=== PATIENT | female | born 1975 ===

== ENCOUNTER 2020-04-28 10:22 | Outpatient (REF) | payer OTHER, SELFPAY ==
--- NOTE | 2020-04-28 | US_ITS ---
EXAMINATION: RIGHT and LEFT LOWER EXTREMITY VENOUS ULTRASOUND (Reflux Exam) CLINICAL INDICATION: leg pain and varicose veins. COMPARISON: Bilateral lower extremity venous ultrasound January 2020 TECHNIQUE: Color flow triplex imaging and compression Doppler was performed to evaluate both the deep and the superficial systems bilaterally. To evaluate the superficial system, the examination was performed in the upright position. Color-flow Doppler ultrasound and compression ultrasound were utilized. In addition, maneuvers were utilized to demonstrate reflux. FINDINGS: 1. DEEP VENOUS ULTRASOUND OF THE RIGHT LOWER EXTREMITY: Respiratory variation, normal compression and augmented flow are noted in the right common femoral vein as well as the right popliteal vein and there is no evidence of deep venous thrombosis at these locations. There is no evidence of reflux in the deep system in either the common femoral vein or the popliteal vein. There is no evidence of a Cotter's cyst. 2. SUPERFICIAL ULTRASOUND WITH DOPPLER OF RIGHT LOWER EXTREMITY: The right great saphenous vein at the saphenofemoral junction measures 6 mm, at the mid thigh 5 mm, pqyok-qoh-dgyd 6 mm, jcgyl-giw-lxrc 5 mm, at mid calf 4 mm and at the ankle measures 4 mm. There is diffuse right greater saphenous vein reflux measuring maximum 3.6 seconds below the knee. The right small saphenous vein measures 1 mm and shows no reflux. There is a paperhanger in the mid thigh that measures 3 mm and demonstrates 3.5 second reflux. There is a varicosity in the proximal calf that measures 3 mm and demonstrates 3.4 seconds reflux. There is a right inguinal lymphadenopathy. 3. DEEP VENOUS ULTRASOUND OF THE LEFT LOWER EXTREMITY: Respiratory variation, normal compression and augmented flow are noted in the left common femoral vein as well as the left popliteal vein and there is no evidence of deep venous thrombosis at these locations. There is no evidence of reflux in the deep system in either the common femoral vein or the popliteal vein. . There is no evidence of a Cotter's cyst. 4. SUPERFICIAL ULTRASOUND WITH DOPPLER OF LEFT LOWER EXTREMITY: Left great saphenous vein at the saphenofemoral junction measures 7 mm, at the mid thigh 3 mm, jjunm-hrz-xlor 3 mm, ersrg-yde-rhyi 3 mm, at mid calf to mm and at the ankle measures 3 mm. 'T there is reflux in the left greater saphenous vein below the knee measuring 0.3 there is reflux in the left greater saphenous vein measuring 1.9 seconds of below the knee. There is a medial accessory left greater saphenous vein that measures 2 to 3 mm and does not demonstrate reflux. The left small saphenous vein measures 1 mm and shows no reflux. There are small varicosities that measure less than 3 mm in the left lower extremity and do not demonstrate reflux. There is left inguinal lymphadenopathy. IMPRESSION: 1. No evidence of reflux or thrombus in the common femoral veins or popliteal veins bilaterally. 2. Bilateral greater saphenous vein reflux, right greater than left.
== END 2020-04-28 10:23 | disposition home or self-care (01) ==
LOC: HO.US 10:22
PROVIDERS: PCP Internal Medicine; Visit Provider Surgery Vascular Surgery
DX: I83.11 Varicose veins of right lower extremity with inflammation (principal)
CPT/HCPCS: 93970

== ENCOUNTER → 2020-05-03 13:17 | Outpatient (REF) | payer OTHER, SELFPAY ==
--- NOTE | 2020-05-03 13:00 | ECG_ITS ---
Hook-up date: 2020-05-03 13:26:00 Duration: 23:07:00 Test Indications: PALPITATIONS, PVC'S, WPW Medications: 90635 QRS complexes 1 Ventricular ectopics which represent <1 % of total QRS comp. 5 Supraventricular ectopics which represent <1 % of total QRS comp. * Paced QRS complexs which represent % of total QRS comp. VENTRICULAR ECTOPY 1 Isolated 0 Bigeminal Cycles 0 Couplets 0 Runs 0 Beats in Runs * Beats LONGEST at * BPM at :: -- * Beats FASTEST at * BPM at :: -- SUPRAVENTRICULAR ECTOPY 1 Isolated 0 Couplets 1 Runs 4 Beats in Runs 4 Beats LONGEST at 180 BPM at 13:30:01 2020-05-03 4 Beats FASTEST at 180 BPM at 13:30:01 2020-05-03 HEART RATES 56 MIN at 06:17:09 2020-05-04 84 AVG 127 MAX at 13:26:58 2020-05-03 LONGEST RR 1.1600 secs at 05:12:51 2020-05-04 S-T LEVELS Channel 1 - 128 mm at 13:26:00 2020-05-03 - 128 mm at 13:26:00 2020-05-03 Channel 2 - 128 mm at 13:26:00 2020-05-03 - 128 mm at 13:26:00 2020-05-03 Channel 3 - 128 mm at 03:24:51 -- - 128 mm at 03:24:51 Underlying rhythm is sinus; Average ventricular rate 84/min; range 56-127/min; Very rare supraventricular ectopy; No sustained arrhythmias; Patient did not return diary Referred By: Jn Rodrigze Overread By: GIRISH WILLOUGHBY
== END ==
LOC: HO.CARD 13:17
PROVIDERS: Visit Provider Internal Medicine Cardiovascular Disease
DX: R00.2 Palpitations (principal); I49.3 Ventricular premature depolarization; I45.6 Pre-excitation syndrome
CPT/HCPCS: 93225; 93226

== ENCOUNTER → 2020-05-05 10:09 | Outpatient (BNVA) | payer OTHER, SELFPAY | PROVIDERS: PCP Internal Medicine; Visit Provider Surgery Vascular Surgery | DX: I83.11 Varicose veins of right lower extremity with inflammation (principal) | CPT/HCPCS: 99213 ==

== ENCOUNTER → 2020-06-03 07:31 | Outpatient (BNVA) | payer OTHER, SELFPAY | PROVIDERS: PCP Internal Medicine; Referring Provider Internal Medicine; Visit Provider Surgery Vascular Surgery | DX: I83.11 Varicose veins of right lower extremity with inflammation (principal) | CPT/HCPCS: 36482 ==

== ENCOUNTER 2020-06-06 15:28 | Outpatient (REF) | payer OTHER, SELFPAY ==
--- NOTE | 2020-06-06 | US_ITS ---
EXAMINATION: US VENOUS ULTRASOUND WITH DOPPLER LOWER EXTREMITY, RIGHT CLINICAL INFORMATION: Right leg pain and swelling post venoseal procedure COMPARISON: Previous exam April 2020 TECHNIQUE: Ultrasound of the deep veins is performed from the hip to the calf with compression sonography and color and pulse Doppler assessment. Spectral analysis with color-flow imaging is performed. FINDINGS: There is normal venous compression and respiratory variation and augmented flow. The visualized common femoral vein, superficial femoral vein, profunda femoral vein, popliteal vein, and the trifurcation region shows no evidence of deep venous thrombosis. There is no significant popliteal fossa cyst. There is echogenic material seen in the right greater saphenous vein 1.4 cm from the saphenofemoral junction post venoseal procedure. No flow is seen in the right greater saphenous vein. There is no Cotter's cyst. There are small right groin lymph nodes. US/US venous duplex LE RT IMPRESSION: No DVT demonstrated in the right lower extremity.
== END 2020-06-06 15:29 | disposition home or self-care (01) ==
LOC: HO.HMGCX 15:28
PROVIDERS: PCP Internal Medicine; Visit Provider Surgery Vascular Surgery
DX: M79.604 Pain in right leg (principal)
CPT/HCPCS: 93971

== ENCOUNTER → 2020-06-21 15:02 | Outpatient (BNVA) | payer OTHER, SELFPAY | PROVIDERS: PCP Internal Medicine; Referring Provider Internal Medicine; Visit Provider Surgery Vascular Surgery | DX: Z48.812 Encounter for surgical aftercare following surgery on the circulatory system (principal) | CPT/HCPCS: 99212 ==

== ENCOUNTER 2020-08-31 08:26 | Outpatient (REF) | payer OTHER, SELFPAY ==
--- NOTE | 2020-08-31 08:34 | US_ITS ---
EXAMINATION: US COMPLETE ABDOMEN WITH LIVER ELASTOGRAPHY CLINICAL INFORMATION: Abnormal liver function tests COMPARISON: None. TECHNIQUE: Real-time imaging of the abdominal viscera. Noninvasive ultrasound liver fibrosis assessment is performed using Brigida ElastPQ point quantification shear wave elastography (pSWE) with a 5 MHz transducer. Multiple elastography samples are obtained. FINDINGS: PANCREAS: Normal. ABDOMINAL AORTA: The proximal, middle, and distal aortic segments are normal in caliber. INFERIOR VENA CAVA: Visualized portions are normal. LIVER: Liver echotexture is increased probably representing fatty infiltration. There is a hypoechoic area adjacent to the gallbladder, characteristic location of focal fatty sparing. The liver is normal in contour.. No focal lesion or intrahepatic biliary duct dilatation. The liver is enlarged. The right lobe measures 22 cm in length. The left lobe measures 13 cm in length. Main portal vein is patent with appropriate hepatopedal flow Shear wave elastography provides a median stiffness of 1.5 m/s (reference: normal median stiffness is 0.81 - 1.22 m/s). The IQR/median stiffness to assess sampling precision is 0.4 (reference: optimal IQR/median stiffness is under 0.3). GALLBLADDER: Normal. The gallbladder is physiologically distended without evidence of stones, sludge, polyps, wall thickening or pericholecystic fluid. COMMON BILE DUCT: Normal in caliber measuring 0.2 cm in diameter. RIGHT KIDNEY: Normal. No hydronephrosis. No renal calculi or focal parenchymal lesions. The kidney measures 10 cm in maximum dimension. LEFT KIDNEY: Normal. No hydronephrosis. No renal calculi or focal parenchymal lesions. The kidney measures 10 cm in maximum dimension. SPLEEN: Normal. The spleen measures 12 cm in maximum dimension. FREE FLUID: None. US/US abdomen witt w elastography IMPRESSION: 1. Impression: Enlarged echogenic liver probably representing fatty infiltration. 2. Elastography: Metavir score F2 to F3 suggestive of [id number]-ut-hmqhsudd increased risk of developing liver fibrosis.
--- NOTE | 2020-08-31 08:34 | XR_ITS ---
EXAMINATION: XR KNEE, RIGHT CLINICAL INFORMATION: Pain COMPARISON: None TECHNIQUE: Two views of the right knee. FINDINGS: There is loss of medial and patellofemoral compartment joint space. There is anterior superior patellar enthesophyte. No abnormal joint effusion seen. There are no loose bodies or bony erosive changes. No abnormal joint effusion. XR/XR knee RT 2V IMPRESSION: There is anterior superior patellar enthesophyte. No visible acute fracture, dislocation or joint effusion seen.
[2020-08-31 10:59] LABS: Alanine Aminotransferase 39 U/L (0-31); Albumin Level 3.8 g/dL (3.5-5.0); Alkaline Phosphatase 161 U/L (39-117); Anion Gap 11 (12-20); Aspartate Amino Transferase 29 U/L (5-31); Bilirubin Total 0.9 mg/dL (0.0-1.0); Blood Urea Nitrogen 11 mg/dL (9-16); Calcium 8.6 mg/dL (8.4-10.2); Carbon Dioxide 28 mmol/L (22-29); Chloride 106 mmol/L (96-108); Cholesterol 182 mg/dL; Estimated Glomerular Filt Rate > 60; Glucose Fasting 123 mg/dL (60-99); HDL Cholesterol 37 mg/dL; LDL Cholesterol Calculated 101 mg/dl; Potassium 3.9 mmol/L (3.3-5.1); Sodium 141 mmol/L (135-145); Total Protein 6.6 g/dL (6.5-8.0); Triglycerides 223 mg/dL
[2020-08-31 11:11] LABS: HBS Num1 > 1000.00 mIU/mL (0-7.99); HBc Num1 0.05 S/CO (0.00-0.79); HBsAGNum1 0.17 S/CO (0.00-0.99); Hepatitis B Core Antibody Nonreactive (Nonreactive); Hepatitis B Surface Antigen Negative (Negative); ~HepC Num1 0.11 S/CO (0.00-0.79); ~Hepatitis B Surface Antibody REACTIVE (Nonreactive); ~Hepatitis C Antibody Nonreactive (Nonreactive)
[2020-08-31 11:27] LABS: Hepatitis A Antibody IgM 0.19 Index (0-0.79); ~Hepatitis A Antibody IgM Nonreactive (Nonreactive)
== END 2020-08-31 08:27 | disposition home or self-care (01) ==
LOC: HO.US 08:26
PROVIDERS: PCP Internal Medicine; Visit Provider Internal Medicine
DX: R74.01 Elevation of levels of liver transaminase levels (principal); E78.5 Hyperlipidemia, unspecified; R73.02 Impaired glucose tolerance (oral); M25.561 Pain in right knee
CPT/HCPCS: 36415; 73560; 76705; 76981; 80053; 80061; 86704; 86706; 86709; 86803; 87340

== ENCOUNTER 2021-01-03 11:28 | Outpatient (REF) | payer OTHER, SELFPAY ==
[2021-01-03 12:35] LABS: MANUAL DIFF FLAG NO
[2021-01-03 12:42] LABS: Basophils Percent Auto 0.5 % (0-2); Eosinophils Absolute Auto 0.1 X10*3/uL (0.0-0.4); Eosinophils Percent Auto 1.7 % (0-4); Hematocrit 42.2 % (37-47); Hemoglobin 14.3 g/dl (12.0-16.0); Imm Gran Abs Auto 0.03 X10*3/uL (0.00-0.03); Imm Gran Pct Auto 0.4 % (0.0-0.4); Lymphocytes Absolute Auto 2.6 X10*3/uL (1.2-4.9); Lymphocytes Percent Auto 32.3 % (20-40); Mean Corpuscular HGB Conc 33.9 g/dl (31.0-35.0); Mean Corpuscular Volume 82.7 fL (80-98); Mean Platelet Volume 9.6 fL (9.4-12.3); Monocytes Absolute Auto 0.4 X10*3/uL (0.1-1.2); Monocytes Percent Auto 4.8 % (2-11); Neutrophils Absolute Auto 4.9 X10*3/uL (2.0-8.3); Neutrophils Percent Auto 60.3 % (45-73); Platelet Count 221 X10*3/uL (160-400); Red Cell Distribution Width 12.6 % (11.0-16.0); White Blood Count 8.2 X10*3/uL (4.8-10.8)
[2021-01-03 12:53] LABS: Prothrombin Time 11.7 SEC (10.8-13.0)
[2021-01-03 13:12] LABS: Alanine Aminotransferase 39 U/L (0-31); Alkaline Phosphatase 178 U/L (39-117); Anion Gap 10 (12-20); Aspartate Amino Transferase 26 U/L (5-31); Bilirubin Total 0.9 mg/dL (0.0-1.0); Blood Urea Nitrogen 13 mg/dL (9-16); Calcium 9.6 mg/dL (8.4-10.2); Carbon Dioxide 29 mmol/L (22-29); Chloride 106 mmol/L (96-108); Estimated Glomerular Filt Rate > 60; Glucose Random 128 mg/dL (60-115); Potassium 4.1 mmol/L (3.3-5.1); Sodium 141 mmol/L (135-145); Total Protein 6.8 g/dL (6.5-8.0)
[2021-01-03 13:33] LABS: Ferritin 77 ng/mL (10-250); Vitamin D 25-OH Total 26.3 ng/mL (>30)
[2021-01-03 13:45] LABS: Folate 13.6 ng/mL (> or = 4.0); Vitamin B12 641 pg/mL (200-900)
[2021-01-05 14:22] LABS: Mitochondrial Antibodies NEGATIVE (NEGATIVE)
[2021-01-05 16:52] LABS: Immunoglobulin G 1091 mg/dL (600-1640)
[2021-01-06 00:06] LABS: ANA Titer 2 1:40 titer; Anti Nuclear Antibody Screen POSITIVE (NEGATIVE); Anti Nuclear Antibody Titer 1:40 titer
[2021-01-06 06:56] LABS: Zinc 93 mcg/dL (60-130)
[2021-01-06 12:16] LABS: Transglutaminase Ab IgG 2 U/mL; Transglutaminase IgA 1 U/mL
[2021-01-06 17:57] LABS: Vitamin C 0.9 mg/dL (0.3-2.7)
[2021-01-07 11:41] LABS: Soluble Liver Ag Autoantibody <20.1 U (0.0-20.0)
[2021-01-07 12:56] LABS: Vitamin B6 6.9 ng/mL (2.1-21.7)
[2021-01-07 20:57] LABS: Vitamin K1 449 pg/mL (130-1500)
[2021-01-08 03:01] LABS: Vitamin A 50 mcg/dL (38-98)
[2021-01-08 03:21] LABS: Alpha-Tocopherol 11.9 mg/L (5.7-19.9); Beta-Gamma Tocopherol 2.1 mg/L (<=4.3)
[2021-01-09 14:17] LABS: Nicotinamide 24 ng/mL; Vit B3 - Nicotinic Acid <20 ng/mL
[2021-01-09 15:27] LABS: Vitamin B5 (Pantothenic Acid) <40 ng/mL (<275)
[2021-01-09 21:56] LABS: Alpha 1 Anti-trypsin 125 mg/dL (83-199)
[2021-01-09 22:22] LABS: Smooth Muscle Antibody <20 U (<20)
== END 2021-01-03 11:29 | disposition home or self-care (01) ==
LOC: HO.LAB 11:28
PROVIDERS: PCP Internal Medicine; Visit Provider Internal Medicine Gastroenterology
DX: K75.81 Nonalcoholic steatohepatitis (NASH) (principal); R79.82 Elevated C-reactive protein (CRP); R74.01 Elevation of levels of liver transaminase levels; E66.9 Obesity, unspecified; K52.839 Microscopic colitis, unspecified; R10.33 Periumbilical pain; G89.29 Other chronic pain
CPT/HCPCS: 36415; 80053; 82103; 82180; 82306; 82607; 82728; 82746; 82784; 83516; 83520; 84207; 84446; 84590; 84591; 84597; 84630; 85025; 85610; 86038; 86039; 86255; 86256; 99202

== ENCOUNTER 2021-01-20 08:37 | Outpatient (REF) | payer OTHER, SELFPAY ==
[2021-01-20 10:47] LABS: C Reactive Protein 1.09 mg/dL (< or = 0.50); Rheumatoid Factor < 15.0 IU/mL (<15.0)
[2021-01-20 10:59] LABS: Thyroid Stimulating Hormone 1.63 uIU/mL (0.32-4.0)
[2021-01-20 11:02] LABS: Glucose Urine UA NEG (NEG); Leukocyte Esterase Urine NEG (NEG); Nitrite Urine NEG (NEG); PH 5.5 (5.0-8.0); Specific Gravity - Urine >= 1.030 (1.005-1.025); Urine Blood NEG (NEG); Urine Ketones NEG (NEG); Urine Protein NEG (NEG-TRACE)
[2021-01-20 11:04] LABS: Erythrocyte Sedimentation Rate 6 MM/HR (0-20)
[2021-01-20 11:17] LABS: Appearance Urine HAZY; Color Urine YELLOW
[2021-01-20 13:04] LABS: Amorphous Sediment Urine 4+ /LPF; RBC Urine 0 /HPF (0); WBC Urine 0 /HPF (0-4)
[2021-01-21 12:31] LABS: Anti DNA DS Antibody 1 IU/mL; Antibody to SS-A Antigen <1.0 NEG AI (<1.0 NEG); Antibody to SS-B Antigen <1.0 NEG AI (<1.0 NEG); SM/Ribonucleoprotein Ab <1.0 NEG AI (<1.0 NEG); Smith Protein <1.0 NEG AI (<1.0 NEG)
[2021-01-23 11:01] LABS: Complement C3 161 mg/dL (83-193)
[2021-01-23 18:46] LABS: Thyroglobulin Antibodies <1 IU/mL (< or = 1); Thyroid Peroxidase Antibodies <1 IU/mL (<9)
[2021-01-24 15:22] LABS: Cyclic Citrullinated Peptide <16 UNITS
== END 2021-01-20 08:38 | disposition home or self-care (01) ==
LOC: HO.LAB 08:37
PROVIDERS: PCP Internal Medicine; Visit Provider Student in an Organized Health Care Education/Training Program
DX: R76.8 Other specified abnormal immunological findings in serum (principal); M25.50 Pain in unspecified joint
CPT/HCPCS: 36415; 81001; 84443; 85652; 86140; 86160; 86200; 86225; 86235; 86376; 86431; 86800; 99202

== ENCOUNTER → 2021-02-03 13:40 | Outpatient (BNVA) | payer OTHER, SELFPAY | PROVIDERS: PCP Internal Medicine; Visit Provider Student in an Organized Health Care Education/Training Program | DX: R76.8 Other specified abnormal immunological findings in serum (principal) | CPT/HCPCS: 99212 ==

== ENCOUNTER 2021-06-05 11:30 | Outpatient (REF) | payer OTHER, SELFPAY ==
[2021-06-05 12:53] LABS: MANUAL DIFF FLAG NO
[2021-06-05 13:39] LABS: Basophils Percent Auto 0.3 % (0-2); Eosinophils Absolute Auto 0.2 X10*3/uL (0.0-0.4); Eosinophils Percent Auto 1.7 % (0-4); Hemoglobin 14.4 g/dl (12.0-16.0); Imm Gran Abs Auto 0.03 X10*3/uL (0.00-0.03); Imm Gran Pct Auto 0.3 % (0.0-0.4); Lymphocytes Percent Auto 32.6 % (20-40); Mean Corpuscular HGB Conc 33.5 g/dl (31.0-35.0); Mean Corpuscular Hemoglobin 27.6 pg (27.0-33.0); Mean Corpuscular Volume 82.5 fL (80.0-98.0); Mean Platelet Volume 10.1 fL (9.4-12.3); Monocytes Absolute Auto 0.4 X10*3/uL (0.1-1.2); Monocytes Percent Auto 4.9 % (2-11); Neutrophils Absolute Auto 5.5 x10*3/uL (2.0-8.3); Neutrophils Percent Auto 60.2 % (45-73); Platelet Count 240 X10*3/uL (160-400); Red Blood Count 5.21 X10*6/uL (4.20-5.50); Red Cell Distribution Width 12.8 % (11.0-16.0); White Blood Count 9.1 X10*3/uL (4.8-10.8)
[2021-06-05 13:56] LABS: Alanine Aminotransferase 37 U/L (0-31); Albumin Level 4.3 g/dL (3.5-5.0); Alkaline Phosphatase 168 U/L (39-117); Anion Gap 14 (12-20); Aspartate Amino Transferase 25 U/L (5-31); Bilirubin Total 0.5 mg/dL (0.0-1.0); Blood Urea Nitrogen 12 mg/dL (9-16); Calcium 9.5 mg/dL (8.4-10.2); Carbon Dioxide 25 mmol/L (22-29); Chloride 106 mmol/L (96-108); Estimated Glomerular Filt Rate > 60; Glucose Random 109 mg/dL (60-115); Potassium 3.8 mmol/L (3.3-5.1); Sodium 141 mmol/L (135-145); Total Protein 7.2 g/dL (6.5-8.0)
[2021-06-05 14:25] LABS: Prothrombin Time 10.9 SEC (9.9-13.0)
== END 2021-06-05 11:31 | disposition home or self-care (01) ==
LOC: HO.LAB 11:30
PROVIDERS: PCP Internal Medicine; Referring Provider Internal Medicine; Visit Provider Internal Medicine Gastroenterology
DX: R74.01 Elevation of levels of liver transaminase levels (principal); K75.81 Nonalcoholic steatohepatitis (NASH)
CPT/HCPCS: 36415; 80053; 85025; 85610; 99212

== ENCOUNTER 2021-07-03 08:54 | Day surgery (SDC) | payer OTHER, SELFPAY ==
--- NOTE | ~2021-07-03 | US_ITS ---
EXAMINATION: US GUIDED LIVER BIOPSY CLINICAL INFORMATION: Abnormal liver function tests. COMPARISON: None TECHNIQUE: Procedure and risks and benefits including bleeding and infection were discussed with the patient and informed consent was obtained. The right upper quadrant was prepped and draped in the usual sterile fashion. The skin and soft tissues were anesthetized with 1% lidocaine plain. Using ultrasound guidance and a coaxial system, access to the right lobe of the liver was obtained. Three 20-gauge core biopsies were obtained. There was no complication. The patient received Versed 1 mg and fentanyl 50 mcg intravenously during the procedure. Total sedation time was 10 minutes. Continuous hemodynamic monitoring was provided by a registered nurse under my direct supervision. FINDINGS: Liver echotexture is increased. The liver is enlarged. US/US biopsy liver IMPRESSION: Ultrasound-guided liver biopsy.
[2021-07-03 09:40] VITALS: BMI 29.5
--- NOTE | 2021-07-03 11:38 | HO.RADPN ---
RADIOLOGY Narrative Narrative: Right lobe liver biopsy using coaxial system. 3 20 g core biopsies obtained. No complication.
[2021-07-03] MEDS: Lidocaine HCl 1 % MPF 5 ML VIAL 4 ML SUBCUT (11:41)
[2021-07-03 11:45] VITALS: BP 111/68; PULSE 75; RESP 17; TEMP 36.4; O2SAT 95
[2021-07-03 12:15] VITALS: BP 110/72; PULSE 67; RESP 17; O2SAT 97
[2021-07-03 12:45] VITALS: BP 105/66; PULSE 66; RESP 17; O2SAT 97
[2021-07-03 13:15] VITALS: BP 107/75; PULSE 75; RESP 18
[2021-07-03 13:45] VITALS: BP 119/80; PULSE 85; RESP 18; TEMP 36.7; O2SAT 99
== END 2021-07-03 14:03 | disposition home or self-care (01) ==
PROVIDERS: Radiology Diagnostic Radiology; PCP Internal Medicine; Visit Provider Internal Medicine Gastroenterology
DX: R74.8 Abnormal levels of other serum enzymes (principal); R74.01 Elevation of levels of liver transaminase levels; K75.81 Nonalcoholic steatohepatitis (NASH); K74.00 Hepatic fibrosis, unspecified
CPT/HCPCS: 47000; 76942; 88307; 88313; 99152; J2250; J3010

== ENCOUNTER 2021-10-07 10:56 | Outpatient (REF) | payer OTHER, SELFPAY ==
[2021-10-07 14:35] LABS: TSH reflex Free T4 1.82 uIU/mL (0.32-4.0); Vitamin D 25-OH Total 20.2 ng/mL (>30)
== END 2021-10-07 10:57 | disposition home or self-care (01) ==
LOC: HO.HMGCLDS 10:56
PROVIDERS: PCP Internal Medicine; Visit Provider Nurse Practitioner Family
DX: M79.89 Other specified soft tissue disorders (principal); R07.89 Other chest pain
CPT/HCPCS: 36415; 82306; 84443

== ENCOUNTER → 2021-11-02 11:05 | Outpatient (REF) | payer OTHER, SELFPAY ==
--- NOTE | 2021-11-02 11:10 | ECG_ITS ---
Test Reason : CP Blood Pressure : / mmHG Vent. Rate : 080 BPM Atrial Rate : 080 BPM P-R Int : 134 ms QRS Dur : 082 ms QT Int : 408 ms P-R-T Axes : 039 011 027 degrees QTc Int : 470 ms Normal sinus rhythm Normal ECG When compared with ECG of 06-MAR-2019 11:12, No significant change was found Referred By: Iesha Peters Electronically Signed By:SUSAN ANGULO MD
== END ==
LOC: HO.CARD 11:05
PROVIDERS: PCP Internal Medicine; Visit Provider Nurse Practitioner Family
DX: R07.89 Other chest pain (principal)
CPT/HCPCS: 93005

== ENCOUNTER → 2022-01-03 13:13 | Outpatient (REF) | payer OTHER, SELFPAY ==
--- NOTE | 2022-01-03 13:16 | CA_ITS ---
Transthoracic Echocardiogram Patient (Last, First, Middle): Nevin Horowitz V Gender: Female Date of : 1975 Age: 46 Procedure Date: 01/03/2022 Procedure Type: Transthoracic Echocardiogram Location: OP Height: 172.72 cm Weight: 82.56 kg BSA: 1.96 m2 Heart Rate: bpm BP: 122 / 68 mmHg Egg Pasteurizer: CARLOS EDUARDO Referring MD: Iesha Peters RN WELLNESS Symptoms: M79.89 - Other specified soft tissue disorders Study Quality: Fair ECG Rhythm: Sinus Conclusions: - The left ventricular systolic function is normal. The visually estimated ejection fraction is between 55-60%. - No obvious valvular pathology seen on this study. Findings Left Ventricle Normal left ventricular cavity size. There is normal left ventricular wall thickness. The left ventricular systolic function is normal. The visually estimated ejection fraction is between 55-60%. There is no evidence of regional wall motion abnormalities. Diastolic function is normal for age. Right Ventricle The right ventricle was not well visualized. There is normal right ventricular systolic function. Atria The left atrium is normal in size. The right atrium was not well visualized. Aortic Valve There is a normal trileaflet aortic valve. There is no aortic valve stenosis. There is no aortic valve regurgitation. Mitral Valve The mitral valve appears normal. There is trace mitral valve regurgitation. There is no mitral valve stenosis. Pulmonic Valve The pulmonic valve is likely normal. There is trace pulmonic valve regurgitation. Tricuspid Valve There is trace tricuspid valve regurgitation. Tricuspid regurgitation envelope is inadequate for calculation of right ventricular systolic pressure. Great Vessels The asc aorta is normal in size. Venous The inferior vena cava is normal in size and collapses greater than 50% with inspiration. Pericardium/Pleural There is no evidence of pericardial effusion. Prior Study Comparison No significant change compared to prior study dated: 01/25/2022. Recommendations, Care & Conclusions No obvious valvular pathology seen on this study. Measurements 2D Linear Measurements IVSd: 0.94 0.6-0.9/0.6-1.0 cm LVIDd: 4.84 3.9-5.3/4.2-5.9 cm LVIDd Index: 2.47 2.4-3.2/2.2-3.1 cm/m2 LVIDs: 3.06 2.0-3.6 cm LVPWd: 0.95 0.7-1.1 cm Ao Root: 3.40 2.1-3.5 cm LA Diam: 3.30 2.7-3.8/3.0-4.0 cm LAIDs Index: 1.68 1.5-2.3 cm/m2 LV Mass: 197.97 67-162/88-224 g LV Mass Index: 101.00 43-95/49-115 g/m2 LVOT Diam: 2.20 3.0+(-)1.3 cm Mitral Valve MV Pk E: 0.65 MV PK A: 0.40 MV Decel Time: 61.00 E/A: 1.60 E'Lateral: 6.42 E'Medial: 5.55 E/E' Med: 11.70 E/E' Lat: 10.10 PHT: 18.00 MVA PHT: 12.22 Decel [place]: 10.58 Aortic Valve AoV Pk King: 0.95 AoV Mn King: 0.56 AoV VTI: 0.19 AoV Pk Grad: 4.00 Aov Mn Grad: 2.00 KRISTI Cont.VTI: 2.39 LVOT LVOT Pk King: 0.52 LVOT Mn King: 0.34 LVOT VTI: 0.12 LVOT Pk Grad: 1.00 LVOT Mn Grad: 1.00 LVOT Diam: 2.20 LVOT Area: 3.80 Diastolic Function MV Pk E: 0.65 MV Pk A: 0.40 E/A: 1.60 E'Medial: 5.55 E/E' Med: 11.70 E' Laterial: 6.42 E/E' Lat: 10.10 Right Ventricle TVS' Ikng: 14.60 Tricuspid Valve TR Pk King: 1.88 TR Pk Grad: 14.00 Great Vessels Aorta Ao Root-2D: 3.40 2.0-3.7 cm Ao Asc: 3.30 2.1-3.4 cm Pulmonary Valve PV Pk King: 0.92 Peak PV Grad: 3.00 Updated in Other Vendor System with Status of Final Perez Hand MD electronically signed on 01/06/2022 11:35:34 AM with status of Final
== END ==
LOC: HO.CARD 13:13
PROVIDERS: PCP Internal Medicine; Visit Provider Nurse Practitioner Family
DX: R07.89 Other chest pain (principal); M79.89 Other specified soft tissue disorders
CPT/HCPCS: 93306

== ENCOUNTER 2022-03-27 14:05 | Outpatient (REF) | payer OTHER, SELFPAY ==
--- NOTE | ~2022-03-27 | XR_ITS ---
EXAMINATION: XR ANKLE, RIGHT CLINICAL INFORMATION: Pain in right ankle and joints of right foot COMPARISON: None TECHNIQUE: AP, lateral, and mortise views of the right ankle. FINDINGS: There is enthesopathy of the distal Achilles tendon attachment. Tiny plantar calcaneal osteophyte. No widening of the ankle mortise. There are well-corticated ossific fragments adjacent the medial malleolus. No acute fracture seen. XR/XR ankle RT 2V IMPRESSION: Likely chronic degenerative and/or posttraumatic abnormality adjacent the medial malleolus. No acute osseous abnormality.
== END 2022-03-27 14:06 | disposition home or self-care (01) ==
LOC: HO.XRAY 14:05
PROVIDERS: PCP Internal Medicine; Visit Provider Internal Medicine
DX: M25.571 Pain in right ankle and joints of right foot (principal)
CPT/HCPCS: 73600

== ENCOUNTER 2022-07-31 10:28 | Outpatient (REF) | payer OTHER, SELFPAY ==
[2022-07-31 13:00] LABS: Alanine Aminotransferase 44 U/L (0-31); Albumin Level 4.5 g/dL (3.5-5.0); Alkaline Phosphatase 196 U/L (39-117); Anion Gap 11 (12-20); Aspartate Amino Transferase 29 U/L (5-31); Bilirubin Total 0.7 mg/dL (0.0-1.0); Blood Urea Nitrogen 13 mg/dL (9-16); Carbon Dioxide 27 mmol/L (22-29); Chloride 106 mmol/L (96-108); Cholesterol 228 mg/dL; Estimated Glomerular Filt Rate > 60; Glucose Fasting 160 mg/dL (60-99); HDL Cholesterol 44 mg/dL; LDL Cholesterol Calculated 157 mg/dl; Potassium 4.3 mmol/L (3.3-5.1); Sodium 140 mmol/L (135-145); Total Protein 7.4 g/dL (6.5-8.0); Triglycerides 139 mg/dL
[2022-07-31 13:19] LABS: Vitamin D 25-OH Total 24.8 ng/mL (>30)
== END 2022-07-31 10:29 | disposition home or self-care (01) ==
LOC: HO.LAB 10:28
PROVIDERS: PCP Internal Medicine; Visit Provider Internal Medicine
DX: Z00.00 Encounter for general adult medical examination without abnormal findings (principal); E55.9 Vitamin D deficiency, unspecified
CPT/HCPCS: 36415; 80053; 80061; 82306

== ENCOUNTER 2022-09-01 08:50 | Outpatient (REF) | payer OTHER, SELFPAY ==
[2022-09-01 12:26] LABS: Alanine Aminotransferase 34 U/L (0-31); Albumin Level 4.3 g/dL (3.5-5.0); Alkaline Phosphatase 175 U/L (39-117); Anion Gap 16 (12-20); Aspartate Amino Transferase 24 U/L (5-31); Bilirubin Total 1.1 mg/dL (0.0-1.0); Blood Urea Nitrogen 12 mg/dL (9-16); Calcium 9.8 mg/dL (8.4-10.2); Carbon Dioxide 25 mmol/L (22-29); Chloride 104 mmol/L (96-108); Estimated Glomerular Filt Rate > 60; Glucose Fasting 140 mg/dL (60-99); Potassium 4.4 mmol/L (3.3-5.1); Sodium 141 mmol/L (135-145)
[2022-09-01 12:47] LABS: Vitamin D 25-OH Total 23.7 ng/mL (>30)
== END 2022-09-01 08:51 | disposition home or self-care (01) ==
LOC: HO.LAB 08:50
PROVIDERS: Nurse Practitioner Family; PCP Internal Medicine; Visit Provider Internal Medicine
DX: R73.02 Impaired glucose tolerance (oral) (principal); R79.89 Other specified abnormal findings of blood chemistry
CPT/HCPCS: 36415; 80053; 82306

== ENCOUNTER 2022-12-03 11:29 | Outpatient (REF) | payer OTHER, SELFPAY ==
[2022-12-06 07:13] LABS: TS Negative Control Passed; TS Panel A 0; TS Panel B 0; TS Positive Control Passed; TSpotTB Negative (Negative)
== END 2022-12-03 11:30 | disposition home or self-care (01) ==
LOC: HO.LAB 11:29
PROVIDERS: PCP Internal Medicine; Visit Provider Internal Medicine
DX: Z11.1 Encounter for screening for respiratory tuberculosis (principal)
CPT/HCPCS: 36415; 86481

== ENCOUNTER 2022-12-14 15:00 | Outpatient (RCR) | payer OTHER, SELFPAY ==
--- NOTE | 2022-11-28 16:10 | MHC.PT.EP ---
[facility] [place] [facility] [place] [facility] [place] [facility] [address] Nathanael Mckay [address] [phone] F: [phone] F: [phone] F: [phone] F: [phone] Physical Therapy Plan of Care Date of Evaluation: Date of Surgery: N/A Diagnosis: Pain in right shoulder Assessment: Pt is a pleasant 47yo F who presents to PT with R shoulder pain. She presents to PT with current impairments with pain, decreased R shoulder ROM, decreased cervical ROM, decreased R shoulder strength, soft tissue restrictions, and impaired posture. She is TTP throughout R UT, levator, and occipitals. She is limited functionally by lifting, reaching, carrying, pushing, and pulling. She is an excellent candidate for skilled PT in order to address current impairments to facilitate return to PLOF. She is recommended to be seen 2x/week for 4 weeks and will be reassessed at that time. 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 Manual therapy to restore motion and function. Therapeutic exercise to improve strength and flexibility. Neuromuscular re-education for posture and balance. Therapeutic activities to return to functional activities of daily living. Electronically signed by: Candida Decker, PT, DPT Please sign and return to therapist. Thank you for your referral.
--- NOTE | 2023-01-02 11:53 | MHC.PT.DC ---
[facility] [place] Office [place] Office [place] [facility] [address] Nathanael Mckay [address] [phone] F: [phone] F: [phone] F: [phone] F: [phone] Physical Therapy Discharge Report Diagnosis: Pain in right shoulder Date of Surgery: N/A Date of Evaluation: 11/28/22 Date of Discharge: 01/02/23 Treatments to Date: 2 Cancellations to Date: 2 No Shows to Date: 4 Discharge Status: Visit Non-compliance Discharge Summary: Pt was seen for PT from 11/28/22-12/14/22. Her last attended appointment was 12/14/22. She has had 4 no show appointments since SOC. Pt is being D/C from skilled PT per [facility] attendance policy and visit non compliance. Pt current level of function unknown at this time. Electronically signed by: Candida Decker, PT, DPT Please sign and return to therapist. Thank you for your referral.
== END 2023-01-02 11:53 | disposition home or self-care (01) ==
LOC: HO.PT 15:00
PROVIDERS: PCP Internal Medicine; Visit Provider Internal Medicine
DX: M25.511 Pain in right shoulder (principal)
CPT/HCPCS: 97110; 97140; 97161

== ENCOUNTER 2023-03-05 07:54 | Outpatient (AMB) | payer OTHER, SELFPAY ==
[2023-03-05 07:59] VITALS: BP 114/72; PULSE 58; O2SAT 98; BMI 27.5
--- NOTE | 2023-03-05 07:59 | A.OFFPC_ITS ---
Vital Signs 03/05/23 07:59 Height 5 ft 9 in Weight 186 lb BMI 27.5 BP 114/72 Blood Pressure Location Lt brachial Position Sitting Pulse 58 Pulse Source Pulse Oximeter Pulse Oximetry (%) 98 Oxygen Delivery Method Room Air Intake Visit Reasons: dm Photo Lab Specialist Required: No Accompanied by: Self / Same As Patient Allergies No Known Allergies Allergy (Verified 03/05/23 08:11) Medication List - Last Reconciled 03/05/23 by Omayra Flynn MD atorvastatin 20 mg PO BEDTIME 90 days cholecalciferol (vitamin D3) 25 mcg PO DAILY 90 days dulaglutide (Trulicity) 0.75 mg (0.5 mL) subcut QWEEK 90 days erythromycin 1 appl ophthalmic (eye) DAILY 7 days fluticasone propionate 50 mcg/actuation (Allergy Relief (fluticasone)) 1 spray intranasal DAILY 30 days naproxen 500 mg PO BID PRN 30 days Tobacco use date assessed: 10/31/22 Dental Screening Dental Screen Date: 03/05/23 Did you have a dental visit in the last 12 months?: Yes Did you have a dental problem in the last 6 months where you did not have access to dental care?: No Was dental information given to patient?: Patient has dentist HPI HPI Comments History of Present Illness Details This is a 48-year-old female with diabetes mellitus type 2, hyperlipidemia, right shoulder pain and low vitamin-D level that comes today for follow-up on her conditions. A1c within goal being 5.5 % today. Lipid panel will be order and her LDL goal should be less than 70. On vitamin-D supplements for low vitamin-D and vitamin-D levels will be checked. Right shoulder pain stable with naproxen as needed. Denies any chest pain or shortness of breath. [facility] Medical History Right knee pain Transaminitis Surgical History H/O heart surgery H/O tubal ligation H/O tubal ligation Hx of vaginal surgery Family History Father Diabetes Mother Diabetes Brother No problems noted. Brother No problems noted. Brother No problems noted. Brother No problems noted. Brother No problems noted. Brother No problems noted. Sister No problems noted. Son No problems noted. Daughter No problems noted. Social History Housing: House Alcohol intake: current Alcohol intake frequency: holidays/special occasions only Alcohol type: wine Patient Tobacco Use Status: Never used Tobacco e-Cigarette/Vaping Use: Never Used Second Hand Smoke Exposure: No service: No Current occupational status: employed Current occupation: [employer] Current occupational exposures/hazards: No Cognitive needs: No Hearing needs: No Vision needs: No Questionnaire PHQ-9 Over the last 2 weeks, how often have you been bothered by any of the following problems? 1. Little interest or pleasure in doing things: not at all 2. Feeling down, depressed, or hopeless: not at all 3. Trouble falling or staying asleep, or sleeping too much: not at all 4. Feeling tired or having little energy: not at all 5. Poor appetite or overeating: not at all 6. Feeling bad about yourself - or that you are a failure or have let yourself or your family down: not at all 7. Trouble concentrating on things, such as reading the newspaper or watching television: not at all 8. Moving or speaking so slowly that other people could have noticed. Or the opposite - being so fidgety or restless that you have been moving around a lot more than usual: not at all 9. Thoughts that you would be better off or of hurting yourself in some way: not at all Total score: 0 Depression Screening Interpretation: Negative 58238 - PHQ-9 Billing: Yes Source: Developed by Drs. Derrick Howe, Marcia Martin, Ricardo Malave and colleagues, with an educational maddi from [employer]. Thrive Questionnaire Date Thrive assessed: 03/05/23 I am a: Patient What is your living situation today?: I have a steady place to live Within the past 12 months, did the food you bought not last and you didn't have the money to get more?: Never true Within the past 12 months, did you worry whether your food would run out before you got money to buy more?: Never true Do you have trouble paying for medicines?: No Do you have trouble getting transportation to medical appointments?: No Do you have trouble paying your heating and electricity bill?: No Do you have trouble taking care of your child, family member or friend?: No Do you have trouble with day-to-day activities such as bathing, preparing meals, shopping, managing finances, etc.?: No Are you currently unemployed and looking for a job?: No Are you interested in more education?: No Currently or been in a relationship where the following occur: no concerns reported AUDIT C Alcohol Use Questionnaire (AUDIT-C) 1. How often do you have a drink containing alcohol?: Never Total Score: 0 Score Reviewed/Action Taken: No ADDIE-7 AMB Questionnaire ADDIE-7 Date ADDIE - 7 assessed: 10/31/22 Source: Developed by Drs. Derrick Howe, Marcia Martin, Ricardo Malave and colleagues, with an educational maddi from [employer]. Review of Systems Const All systems reviewed & are unremarkable except as noted in HPI and below Eyes Reports no additional complaints, Denies change in vision and Denies other visual disturbances Card Denies chest pain at rest, Denies chest pain with activity, Denies edema, Denies irregular heart rhythm, Denies claudication, Denies dyspnea, Denies dyspnea on exertion, Denies orthopnea, Denies paroxysmal nocturnal dyspnea and Denies slow heart rate Resp Denies cough, Denies dyspnea and Denies dyspnea on exertion GI Denies abdominal pain, Denies change in bowel habits, Denies excessive flatus, Denies nausea and Denies vomiting Denies urinary incontinence, Denies urinary hesitancy and Denies urinary urgency Musc Denies abnormal gait, Denies atrophy, Denies deformity and Denies limited range of motion Skin/Breast Denies bleeding lesions, Denies changing lesions and Denies rash Neuro Denies abnormal gait and Denies lack of coordination Physical exam (Primary Care) Vital Signs: Last Vital Signs Pulse 58 03/05/23 07:59 BP 114/72 03/05/23 07:59 Pulse Ox 98 03/05/23 07:59 Oxygen Delivery Method Room Air 03/05/23 07:59 BMI result Body Mass Index 27.5 Tobacco/Smoking Status: Tobacco use Status Tobacco use date assessed 10/31/22 03/05/23 08:00 Patient Tobacco Use Status Never used Tobacco 03/05/23 08:00 e-Cigarette/Vaping Use Never Used 03/05/23 08:00 PHQ-9: PHQ-9 Score PHQ-9: Total score 0 03/05/23 08:13 Depression Screening Interpretation: Negative Thrive Assessment: Date of Thrive Assessment Date Thrive assessed 03/05/23 03/05/23 08:00 Currently or been in a relationship where the following occur: no concerns reported Eyes General: appearance normal, both eyes and all related structures Eyelids: Yes eyelids normal Conjunctivae: conjunctivae normal Neck Neck: Yes normal visual inspection and Yes supple Resp Effort & Inspection: normal respiratory effort Auscultation: clear to auscultation bilaterally Cardio Jugular venous distension: no JVD Rate: regular rate Rhythm: regular rhythm Heart sounds: S1 normal heart sound present and S2 normal heart sound present Extrem General: Yes full ROM Results AMB Hemoglobin A1c AMB Hemoglobin A1c 5.5 % Last Edit by Negin Holloway CMA on 03/05/23 08 :19 Assessment and Plan Assessment & Plan (1) Diabetes mellitus: Code(s): E11.9 - Type 2 diabetes mellitus without complications Plan: Continue Trulicity. A1c goal is equal or less than 7%. (2) Hyperlipidemia LDL goal <70: Code(s): E78.5 - Hyperlipidemia, unspecified Plan: Continue statins. LDL goal is less than 70. Repeat lipid panel. (3) Low vitamin D level: Code(s): R79.89 - Other specified abnormal findings of blood chemistry Plan: Continue vitamin-D supplements. (4) Right shoulder pain: Code(s): M25.511 - Pain in right shoulder Plan: Continue naproxen as needed. Orders: Orders Comprehensive [place]. Panel Fast Today E11.9 - Type 2 diabetes mellitus without complications Lipid Panel Today E78.5 - Hyperlipidemia, unspecified Vitamin D 25-OH Total Today E55.9 - Vitamin D deficiency, unspecified Microalbumin, Random (w Creat) Today E11.9 - Type 2 diabetes mellitus without complications AMB Hemoglobin A1c Today Z13.9 - Encounter for screening, unspecified Coding Level of Care Code Est Pt Level 4 (95299) Diagnoses Diabetes mellitus E11.9 Hyperlipidemia LDL goal <70 E78.5 Low vitamin D level R79.89 Right shoulder pain M25.511 Time Spent (min) 21
== END 2023-03-05 08:17 | disposition home or self-care (01) ==
PROVIDERS: PCP Internal Medicine; Visit Provider Internal Medicine
DX: E11.9 Type 2 diabetes mellitus without complications (principal); E78.5 Hyperlipidemia, unspecified; R79.89 Other specified abnormal findings of blood chemistry; M25.511 Pain in right shoulder
CPT/HCPCS: 83036; 99214

== ENCOUNTER 2023-07-08 14:24 | Outpatient (AMB) | payer OTHER, SELFPAY ==
[2023-07-08 14:26] VITALS: BP 118/82; PULSE 78; BMI 28.4
--- NOTE | 2023-07-08 14:26 | MHC.PC.OV ---
Vital Signs 07/08/23 14:26 Height 5 ft 9 in Weight 192 lb BMI 28.4 BP 118/82 Blood Pressure Location Lt brachial Position Sitting Pulse 78 Pulse Source Palpation Intake Visit Reasons: Annual Exam Intake Note: Patient is here today for a physical. Sulphate Tester Required: No Accompanied by: Self / Same As Patient Allergies No Known Allergies Allergy (Verified 07/08/23 14:37) Medication List - Last Reconciled 07/08/23 by Omayra Flynn MD cholecalciferol (vitamin D3) 25 mcg PO DAILY 90 days dulaglutide (Trulicity) 0.75 mg (0.5 mL) subcut QWEEK 90 days naproxen 500 mg PO BID PRN 30 days Tobacco use date assessed: 10/31/22 HPI HPI Comments History of Present Illness Details This is a 48-year-old female with diabetes mellitus type 2 that comes for her physical exam. A1c within goal. Last diabetic eye exam was less than a year ago. Mammogram done January 2023 was normal. Pap smear done at [facility] 2022 was normal as per patient. Colonoscopy done 2022 at [facility] was normal as per patient. Some anxiety but no chest pain or shortness of breath. Complains of hair loss. [facility] Medical History (Updated 07/08/23 @ 14:49 by Omayra Flynn MD) Right knee pain Transaminitis Surgical History H/O tubal ligation H/O heart surgery Hx of vaginal surgery H/O tubal ligation Family History Father Diabetes Mother Diabetes Brother No problems noted. Brother No problems noted. Brother No problems noted. Brother No problems noted. Brother No problems noted. Brother No problems noted. Sister No problems noted. Son No problems noted. Daughter No problems noted. Social History Housing: House Alcohol intake: current Alcohol intake frequency: holidays/special occasions only Alcohol type: wine Patient Tobacco Use Status: Never used Tobacco e-Cigarette/Vaping Use: Never Used Second Hand Smoke Exposure: No service: No Current occupational status: employed Current occupation: [employer] Current occupational exposures/hazards: No Cognitive needs: No Hearing needs: No Vision needs: No Questionnaire Thrive Questionnaire Date Thrive assessed: 03/05/23 ADDIE-7 AMB Questionnaire ADDIE-7 Date ADDIE - 7 assessed: 10/31/22 Source: Developed by Drs. Derrick Howe, Marcia Martin, Ricardo Malave and colleagues, with an educational maddi from [employer]. Review of Systems Const All systems reviewed & are unremarkable except as noted in HPI and below Eyes Reports no additional complaints, Denies change in vision and Denies other visual disturbances Card Denies chest pain at rest, Denies chest pain with activity, Denies edema, Denies irregular heart rhythm, Denies claudication, Denies dyspnea, Denies dyspnea on exertion, Denies orthopnea, Denies paroxysmal nocturnal dyspnea and Denies slow heart rate Resp Denies cough, Denies dyspnea and Denies dyspnea on exertion GI Denies abdominal pain, Denies change in bowel habits, Denies excessive flatus, Denies nausea and Denies vomiting Denies urinary incontinence, Denies urinary hesitancy and Denies urinary urgency Musc Denies abnormal gait, Denies atrophy, Denies deformity and Denies limited range of motion Skin/Breast Denies bleeding lesions, Denies changing lesions, Reports alopecia and Denies rash Neuro Denies abnormal gait and Denies lack of coordination Physical exam (Primary Care) Vital Signs: Last Vital Signs Pulse 78 07/08/23 14:26 BP 118/82 07/08/23 14:26 BMI result Body Mass Index 28.4 Tobacco/Smoking Status: Tobacco use Status Tobacco use date assessed 10/31/22 07/08/23 14:26 Patient Tobacco Use Status Never used Tobacco 07/08/23 14:26 e-Cigarette/Vaping Use Never Used 07/08/23 14:26 Thrive Assessment: Date of Thrive Assessment Date Thrive assessed 03/05/23 07/08/23 14:26 Const Orientation/consciousness: patient oriented x3 HENMT Head: Yes normal to inspection, Yes normocephalic and Yes atraumatic Ears: external ears normal Eyes General: appearance normal, both eyes and all related structures Eyelids: Yes eyelids normal Conjunctivae: conjunctivae normal Neck Neck: Yes normal visual inspection and Yes supple Resp Effort & Inspection: normal respiratory effort Auscultation: clear to auscultation bilaterally Cardio Jugular venous distension: no JVD Rate: regular rate Rhythm: regular rhythm Heart sounds: S1 normal heart sound present and S2 normal heart sound present GI Inspection: Yes normal to inspection Palpation (GI): Soft to palpation and nontender Auscultation: normal bowel sounds Skin General skin exam: no rashes or lesions noted Neuro General: patient oriented x3 and no focal motor deficits Extrem General: Yes full ROM Psych Appearance: grossly normal Results AMB Hemoglobin A1c AMB Hemoglobin A1c 6.7 % Last Edit by AMAN Mireles on 07/08/23 14:38 Assessment and Plan Assessment & Plan (1) Physical exam: Code(s): Z00.00 - Encounter for general adult medical examination without abnormal findings Plan: Repeat in a year. (2) Diabetes mellitus: Code(s): E11.9 - Type 2 diabetes mellitus without complications Qualifiers: Diabetes mellitus type: type 2 Diabetes mellitus prison insulin use: without terminal superintendent use Diabetes mellitus complication status: without complication Qualified Code(s): E11.9 - Type 2 diabetes mellitus without complications Plan: Continue Trulicity. A1c goal is equal or less than 7%. Orders: Orders AMB Hemoglobin A1c Today E11.9 - Type 2 diabetes mellitus without complications Microalbumin, Random (w Creat) Today E11.9 - Type 2 diabetes mellitus without complications Vitamin D 25-OH Total Today E55.9 - Vitamin D deficiency, unspecified Comprehensive [place]. Panel Fast Today E78.5 - Hyperlipidemia, unspecified Thyroid Stimulating Hormone Today L65.9 - Nonscarring hair loss, unspecified Lipid Panel Today E78.5 - Hyperlipidemia, unspecified Referrals Dermatology Referral L65.9 - Nonscarring hair loss, unspecified Coding Level of Care Code Est Pt Prev Care 40-64y(44296) Diagnoses Physical exam Z00.00 Type 2 diabetes mellitus without complication, without long-term current use of insulin E11.9 Diabetes mellitus type: type 2 Diabetes mellitus prison insulin use: without terminal superintendent use Diabetes mellitus complication status: without complication Time Spent (min) 32
== END 2023-07-08 14:46 | disposition home or self-care (01) ==
PROVIDERS: Visit Provider Internal Medicine
DX: Z00.00 Encounter for general adult medical examination without abnormal findings (principal); E11.9 Type 2 diabetes mellitus without complications
CPT/HCPCS: 83036; 99396

== ENCOUNTER 2024-04-21 09:33 | Outpatient (AMB) | payer OTHER, SELFPAY ==
--- NOTE | 2024-04-21 09:34 | AM.OFFVISNUR ---
Intake Visit Reasons: TB test Allergies No Known Allergies Allergy (Verified 07/08/23 14:37) Office Meds tuberculin PPD 5 tub. unit/0.1 mL intradermal injection solution Performing Provider: Omayra Flynn MD [facility] Administered by: Alexandrea Murillo RN on 04/21/24 09:42 Dose Route Admin Location Dispensed Lot Number Expiration Date [facility] [employer] 0.1 mL intradermal left forearm 0.1 mL [id number] 12/25/26 21003-853-77 [employer] Assessment & Plan Assessment & Plan Orders: Orders AMB PPD Planted Today Z11.1 - Encounter for screening for respiratory tuberculosis Medications: New tuberculin PPD 0.1 mL intradermal ONCE 0.1 mL 0RF Z11.1 - Encounter for screening for respiratory tuberculosis
== END 2024-04-21 09:44 | disposition home or self-care (01) ==
LOC: HO.HMCH 09:33
PROVIDERS: PCP Internal Medicine; Visit Provider Internal Medicine
DX: Z11.1 Encounter for screening for respiratory tuberculosis (principal)

== ENCOUNTER → 2024-04-21 09:33 | Outpatient (BNVA) | payer OTHER, SELFPAY | PROVIDERS: PCP Internal Medicine; Visit Provider Internal Medicine | DX: Z11.1 Encounter for screening for respiratory tuberculosis (principal) | CPT/HCPCS: 86580 ==

== ENCOUNTER → 2024-04-23 13:17 | Outpatient (BNVA) | payer OTHER, SELFPAY | PROVIDERS: PCP Internal Medicine; Visit Provider Internal Medicine ==

== ENCOUNTER → 2024-08-27 07:21 | Outpatient (BNVA) | payer OTHER, SELFPAY | PROVIDERS: PCP Internal Medicine; Visit Provider Internal Medicine | DX: Z00.01 Encounter for general adult medical examination with abnormal findings (principal); Z23 Encounter for immunization; E11.9 Type 2 diabetes mellitus without complications; R00.2 Palpitations; K76.0 Fatty (change of) liver, not elsewhere classified; R10.11 Right upper quadrant pain; F41.1 Generalized anxiety disorder | CPT/HCPCS: 83036; 90471; 90715; 96127; 99212; 99396 ==

== ENCOUNTER 2024-09-29 08:06 | Outpatient (REF) | payer OTHER, SELFPAY ==
--- NOTE | ~2024-09-29 | US_ITS ---
EXAMINATION: US COMPLETE ABDOMEN WITH LIVER ELASTOGRAPHY CLINICAL INFORMATION: Elevated LFTs. Fatty change of liver. COMPARISON: Ultrasound abdomen with Elastography 08/31/2020 TECHNIQUE: Real-time imaging of the abdominal viscera. Noninvasive ultrasound liver fibrosis assessment is performed using Brigida ElastPQ point quantification shear wave elastography (pSWE) with a C5-2 MHz transducer. Multiple elastography samples are obtained. FINDINGS: PANCREAS: The visualized pancreatic head and body are normal in appearance. The remainder of the pancreas is obscured from visualization by the overlying bowel gas. ABDOMINAL AORTA: No aortic aneurysm is seen. INFERIOR VENA CAVA: Visualized portions are normal. LIVER: The liver demonstrates normal size, contour and mild increased echogenicity. There is focal fatty sparing adjacent to the gallbladder. No other focal lesion seen. There is no intrahepatic biliary duct dilatation. The right lobe measures 16.6 cm in length. The left lobe measures 10.8 cm in length. Portal flow is hepatopedal Shear wave liver elastography median stiffness is 1.53 m/s (reference: normal median stiffness is 1.3 m/s or less). On previous ultrasound 2020 median stiffness measures 1.5 m/s, similar. IQR/median stiffness to assess sampling precision is 0.10 (reference: good quality data set is IQR/median stiffness of 0.15 or less). GALLBLADDER: The gallbladder is physiologically distended without evidence of stones, sludge,wall thickening or pericholecystic fluid. There are small echogenic shadowing areas along the inner gallbladder wall suspicious for adenomyomatosis. COMMON BILE DUCT: Normal in caliber measuring 0.3 cm in diameter. RIGHT KIDNEY: No hydronephrosis. No renal calculi or focal parenchymal lesions. The kidney measures 10.0 cm in maximum dimension. LEFT KIDNEY: No hydronephrosis. No renal calculi or focal parenchymal lesions. The kidney measures 10.3 cm in maximum dimension. SPLEEN: Unremarkable. The spleen measures 12.3 cm in maximum dimension. FREE FLUID: None seen. US/US abdomen comp w elastography IMPRESSION: 1. Diffuse echogenic liver with areas of focal fatty sparing adjacent to gallbladder. 2. Liver elastography: Median liver stiffness of 1.5 m/s. Findings suggestive of cACLD. It is unchanged to previous exam. 3. Suspect adenomyomatosis. REFERENCE: Society of Radiologists in Ultrasound Liver Stiffness Thresholds (2020): LIVER STIFFNESS THRESHOLDS: *Liver Stiffness equal or less than 1.3 m/s: High probability of being normal. *Liver Stiffness less than 1.7 m/s: In the absence of other known clinical signs, rules out compensated advanced chronic liver disease. *Liver Stiffness 1.7-2.1 m/s: Suggestive of compensated advanced chronic liver disease but need further test for confirmation. *Liver Stiffness over 2.1 m/s: Rules in compensated advanced chronic liver disease. *Liver Stiffness over 2.4 m/s: Suggestive of clinically significant portal hypertension. QUALITY OF DATA SET: *IQR/Median value equal or less than 0.15 implies a quality data set. *IQR/Median value over 0.15 implies a poor quality data set. SIGNIFICANT CHANGE FROM PRIOR EXAM: Significant change if liver stiffness measurement is 10% or greater from prior exam. OTHER CONSIDERATIONS: The stage of liver fibrosis may be overestimated in the setting of acute hepatitis, liver inflammation, elevated liver function tests, hepatic vascular congestion, obstructive cholestasis, non-fasting state, and infiltrative diseases such as amyloidosis and lymphoma. In some patients with NAFLD, the liver stiffness thresholds for compensated advanced chronic liver disease may be lower. In causes other than viral hepatitis and NAFLD, liver stiffness thresholds are not well established. Electronically signed by: David Parks MD 09/29/2024 11:03 AM ANJEL
--- OUTSIDE RECORDS SUMMARY | 2024-09-29 08:15 | XMS_ITS | Clinical Summary ---
Author Organization [facility] Address [address] [place] [id number] Phone Care Team Providers Care Marker Machine Name Role Phone Omayra Flynn MD Primary Care Provider [phone] Allergies No known active allergies Medications bisacodyL (DULCOLAX) 5 mg EC tablet Take 2 tablets by mouth right before your first dose of liquid prep. 10/10/2022 Active cholecalciferol (VITAMIN D-3) 50 mcg (2,000 unit) capsule Take 1 capsule (2,000 Units total) by mouth 1 (one) time each day. 90 each 3 07/06/2024 5 Active Active Problems No known active problems Encounters Date Type Department Care Team Description 07/06/2024 3:30 PM EST Office Visit Obstetrics & Gynecology - [address] [phone] Rachael Gonsalves CNM Encounter for annual routine gynecological examination (Primary Dx); Bartholin's gland cyst; Overweight; H/O vitamin D deficiency from Last 3 Months Immunizations Name Administration Dates Next Due Moderna SARS-CoV-2 COVID-19, mRNA, LNP-S, preservative free 02/08/2021,01/11/2021 Surgical History Surgery Date Site/Laterality Comments TUBAL LIGATION PROCEDURE: HISTORICAL TUBAL LIGATION BELT ABDOMINOPLASTY PROCEDURE: HISTORICAL TUMMY TUCK OTHER SURGICAL HISTORY 2016 PROCEDURE: [place] HYSTEROSCOPY ENDOMETRIAL ABLATION Medical History Medical History Date Comments Anemia DX:Anemia Heart abnormality DX:Heart abnor mality History of genital injury 01/2019 DX:His tory of genital injury; COMMENT: while jet skiing, seen in [facility], stable at dischage Type 2 diabetes mellitus wit hout complications (CMS/HCC) 2022 DX:Type 2 diabetes mellitus without complications (HCC) Family History Medical History Relation Name Comments Diabetes Brother 1 Hypertension Brother 1 No Known Problems Brother 2 No Known Problems Brother 3 No Known Problems Brother 4 Diabetes Father Hypertension Father Stroke Maternal Grandfather Diabetes Mother No Known Problems Sister x1 Breast cancer Neg Hx Ovarian cancer Neg Hx Relation Name Status Comments Brother 1 Alive Brother 2 Alive Brother 3 Alive Brother 4 Alive Father Alive Maternal Grandfather Mother Alive Sister x1 Alive Social History Tobacco Use Types Packs/Day Years Used Date Smoking Tobacco: Never Smokeless Tobacco: Never Tobacco Cessation:Counseling Given: Not Answered Alcohol Use Standard Drinks/Week Comments No 0 (1 standard drink = 0.6 oz pur e alcohol) Comments No Sex and Gender Information Value Date Recorded Sex Assigned at Not on file Legal Sex Female 4:34 AM EST Gender Identity Not on file Sexual Orientation Not on file Obstetrics History Para Term AB IAB SAB Ectopic Multiple Livin g Live Births 3 3 3 3 3 Date Outcome GA Total Labor Labor/2nd/3rd Weight Sex Type Anes PTL Renate A1 A5 Name Clin 1996 Term M Vag-S pont Living 1998 Term F Vag-S pont Living 2000 Term M Vag-S pont Living Last Filed Vital Signs Vital Sign Reading Time Taken Comments Blood Pressure 127/80 07/06/2024 3:25 PM EST Pulse 101 07/06/2024 3:25 PM EST Temperature - - Respiratory Rate - - Oxygen Saturation - - Inhaled Oxygen Concentration - - Weight 86.6 kg (191 lb) 07/06/2024 3:25 PM EST Height 172.7 cm (5' 8 ) 07/06/2024 3:25 PM EST Body Mass Index 29.04 07/06/2024 3:25 PM EST Plan of Treatment Health Maintenance Due Date Last Done Comments DTaP,Tdap,and Td Vaccines (1 - Tdap) 02/13/1996 Hepatitis B Vaccines (1 of 3 - 19+ 3-dose series) 02/13/1996 Colorectal Cancer Screening: Colonoscopy 07/07/2022 Depression Screening 07/07/2022 Social Influencers of Health Screening 07/07/2022 COVID-19 Vaccine ( season) 2024 02/08/2021, 01/11/2021 Influenza Vaccine (#1) 2024 Cervical Cancer Screening: HPV 02/07/2025 02/08/2020 Breast Cancer Screening 02/16/2026 02/17/20 24, 02/15/2024, 2023, Additional history exists HIV Screening Completed 04/09/2022 Hepatitis C Screening Completed 04/09/2022 HIB Vaccines Aged Out No longer eligi ble based on patient's age to complete this topic HPV Vaccines Aged Out No longer eligi ble based on patient's age to complete this topic Hepatitis A Vaccines Aged Out No long er eligible based on patient's age to complete this topic IPV Vaccines Aged Out No longer eligi ble based on patient's age to complete this topic MMR Vaccines Aged Out No longer eligi ble based on patient's age to complete this topic Meningococcal ACWY Vaccine Aged Out N o longer eligible based on patient's age to complete this topic Meningococcal B Vacine Aged Out No lo nger eligible based on patient's age to complete this topic Pneumococcal Vaccine: Pediatrics (0 to 5 Years) and At-Risk Patients (6 to 64 Years) Aged Out No longer eligible based on patient's age to complete this topic RSV Immunization Patients Under 20 months Aged Out No longer eligible based on patient's age to complete this topic Varicella Vaccines Aged Out No longer eligible based on patient's age to complete this topic Procedures Procedure Name Priority Date/Time Associated Diagnosis Comments SHAE SCREENING DIGITAL Routine 02/17/2024 10:12 AM EDT Encounter for screening mammogram for malignant neoplasm of breast HEPATITIS C SCREENING Routine 04/09/2022 HIV SCREENING Routine 04/09/2022 HPV Routine 02/08/2020 from Last 3 Months or Most Recently Relevant to Health Maintenance Results * SHAE SCREENING DIGITAL (02/17/2024 10:12 AM EDT) Anatomical Region Laterality Modality Mammography 02/13/2024 10:4 7 AM EDT Narrative 02/17/2024 10:12 AM EDT [facility] Diagnostic Imaging Department [address] [place] [id number] Patient: ??HOROWITZ,IRIS ?/Age/Sex: 1975 - 49 - F Unit#: ??[id number] ? Location/Status: ??SPDIMAM/REG CLI ? Mnemonic/Ordering Site: ??DIGSC/SPMAM Ordering Physician: ??RACHAEL GONSALVES CNM [facility] Screening Digital - 02/15/24 - 1044 Report Status:Signed EXAM: [facility] Screening Digital EXAM DATE AND TIME: 02/15/2024 10:45 AM HISTORY: ??Annual screening COMPARISON: ??2023 and 01/12/2019 TECHNIQUE: Bilateral digital breast tomosynthesis was performed in the CC and MLO projections. Computer aided detection with charming charlie 7.2-H and Motionbox 3D 3.1 was employed. TISSUE DENSITY: b. There are scattered areas of fibroglandular density. FINDINGS: No suspicious masses, grouped microcalcifications, or areas of architectural distortion are seen. The skin and vascularity are unremarkable. IMPRESSION: Stable mammographic appearance of the breasts. ??No evidence of malignancy is seen. A negative mammogram in the presence of a clinically suspicious palpable abnormality does not preclude the possibility of malignancy or alter the indications for biopsy. BI-RADS: ??Category 1: Negative RECOMMENDATION(S): 1: Routine screening mammogram BILATERAL in 1 year. Dictating Physician: ??RENA BEEBE MD Electronically Signed by: ??RENA BEEBE MD Dic Date/Time: ??02/17/24 1007 Sign date/Time: ??02/17/24 1012 Procedure Note Rena Beebe MD - 05/13/2024 [facility] Diagnostic Imaging Department [address] [place] [id number] Patient: ARNAVIVÁN /Age/Sex: 1975 - 49 - F Unit#: [id number] [facility] CLI Mnemonic/Ordering Site: [facility] Ordering Physician: RACHAEL GONSALVES CNM [facility] Screening Digital - 02/15/24 - 1044 Report Status:Signed EXAM: [facility] Screening Digital EXAM DATE AND TIME: 02/15/2024 10:45 AM HISTORY: Annual screening COMPARISON: 2023 and 01/12/2019 TECHNIQUE: Bilateral digital breast tomosynthesis was performed in the CCand MLO projections. Computer aided detection with charming charlie 7.2-H andMotionbox 3D 3.1 was employed. TISSUE DENSITY: b. There are scattered areas of fibroglandular density. FINDINGS: No suspicious masses, grouped microcalcifications, or areas ofarchitectural distortion are seen. The skin and vascularity are unremarkable. IMPRESSION: Stable mammographic appearance of the breasts. No evidence of malignancyis seen. A negative mammogram in the presence of a clinically suspicious palpable abnormality does not preclude the possibility of malignancy or alter the indications for biopsy. BI-RADS: Category 1: Negative RECOMMENDATION(S): 1: Routine screening mammogram BILATERAL in 1 year. Dictating Physician: RENA BEEBE MD Electronically Signed by: RENA BEEBE MD Dic Date/Time: 02/17/24 1007 Sign date/Time: 02/17/24 1012 Result [facility] Rachael Gonsalves CNM IMG BI PROCEDURES Final Result * HIV Screening (04/09/2022) HIV Screening abstracted Historical Provider MD HEALTH MAINTENANCE Final Result * Hepatitis C Screening (04/09/2022) Hepatitis C Screening abstracted Result [facility] Historical Provider HEALTH MAINTENANCE Final Result * Cervical Cancer Screening: HPV (02/08/2020) Cervical Cancer Screening: HPV negative, abstracted Result [facility] Historical Provider HEALTH MAINTENANCE Final Result from Last 3 Months or Most Recently Relevant to Health Maintenance Insurance [facility] [place] [phone] Care Teams Marker Machine Relationship Specialty Start Date End Date Omayra Flynn MD [address] [place] [address] Physician Associ D/B/A: [facility] EPIFANIO Balderas PCP - General Internal Medicine 02/27/17
--- NOTE | 2024-09-29 09:14 | ECG_ITS ---
Test Reason : PALPITATIONS Blood Pressure : */* mmHG Vent. Rate : 86 BPM Atrial Rate : 86 BPM P-R Int : 130 ms QRS Dur : 82 ms QT Int : 384 ms P-R-T Axes : 37 5 30 degrees QTcB Int : 459 ms Normal sinus rhythm with sinus arrhythmia Minimal voltage criteria for LVH, may be normal variant ( R in aVL ) Borderline ECG When compared with ECG of 02-Nov-2021 11:10, No significant change was found Referred By: Omayra Flynn Electronically Signed By: SUSAN ANGULO MD
--- NOTE | 2024-09-29 09:14 | HM_ITS ---
Conclusion: 1. Patient was monitored for total period of 23 hours 2. Baseline was normal sinus rhythm with average heart of 90 beats per minute 3. No significant pauses noted 4. Rare PVCs noted 5. Frequent sinus tachycardia noted with 23.4% of time heart rate about 100 beats per minute 6. No patient reported events MTDD
== END 2024-09-29 08:07 | disposition home or self-care (01) ==
LOC: HO.US 08:06
PROVIDERS: PCP Internal Medicine; Visit Provider Internal Medicine
DX: R00.2 Palpitations (principal); R10.11 Right upper quadrant pain; K76.0 Fatty (change of) liver, not elsewhere classified
CPT/HCPCS: 76700; 76981; 93005; 93225

== ENCOUNTER → 2024-09-29 08:08 | Outpatient (BNV) | payer OTHER, SELFPAY | PROVIDERS: PCP Internal Medicine; Visit Provider Radiology Diagnostic Radiology | DX: K76.0 Fatty (change of) liver, not elsewhere classified (principal); R74.01 Elevation of levels of liver transaminase levels | CPT/HCPCS: 76700; 76981 ==

== ENCOUNTER → 2024-09-29 09:14 | Outpatient (BNV) | payer OTHER, SELFPAY | PROVIDERS: PCP Internal Medicine; Visit Provider Internal Medicine Cardiovascular Disease | DX: R00.2 Palpitations (principal) | CPT/HCPCS: 93010 ==

== ENCOUNTER 2024-11-30 14:56 | Outpatient (AMB) | payer OTHER, SELFPAY ==
[2024-11-30 15:02] VITALS: BP 138/95; PULSE 88; BMI 27.7
--- NOTE | 2024-11-30 15:02 | A.OFFVIS_ITS ---
Vital Signs 11/30/24 15:02 Height 5 ft 9 in Weight 187 lb 6.287 oz BMI 27.7 BP 138/95 H Blood Pressure Location Lt brachial Position Sitting Pulse 88 Intake Visit Reasons: l/s 2020 fatty liver Intake Note: Nevin presents in the office as a new patient re establish care - fatty liver. CC: She is here today because she is having issues with her throat. She has been having infections in her throat ever since she had COVID. Bedspread Inspector Required: No Allergies metformin Adverse Reaction (Intermediate, Uncoded 11/30/24 15:10) abdominal pain, diarrhea HPI HPI l/s 2020 fatty liver: Details: 49 yr old f here for f/u RECAP: She still had mild transaminitis on labs and ultrasound showed fatty liver with mild to moderate liver fibrosis. 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 VITAL SIGNS:see workflow HEENT: Nonicteric sclerae, PERRLA, EOMI. Oropharynx clear. Moist mucous membranes. Conjunctivae appear well perfused. No thyroid mass. tonsils flat but inflammed, no palp LN CHEST: Chest wall is nontender. HEART: no raised JVP LUNGS: breathing easily, not wheezy ABDOMEN: not distended SKIN: No rash, no excessive bruising, petechiae, or purpura. NEUROLOGIC: Cranial nerves II-XII intact without motor/sensory deficit. PSYCH: normal affect MS--normal ROM, walking easily AP: Abn LFT, suspected [place], on trulicity PLAN: 1/ commence vit E 400 units bid, check labs now 2/ lconsider changing to ozempic for DM 3/ cont with exercise and weight loss 4/ trial of oral health probiotics, if no better then maybe short course of ABX PFSH Medical History Right knee pain Transaminitis Surgical History H/O tubal ligation H/O heart surgery Hx of vaginal surgery H/O tubal ligation Family History Father Diabetes Mother Diabetes Brother No problems noted. Brother No problems noted. Brother No problems noted. Brother No problems noted. Brother No problems noted. Brother No problems noted. Sister No problems noted. Son No problems noted. Daughter No problems noted. Social History Housing: House Alcohol intake: current Alcohol intake frequency: holidays/special occasions only Alcohol type: wine Patient Tobacco Use Status: Never used Tobacco e-Cigarette/Vaping Use: Never Used Second Hand Smoke Exposure: No service: No Current occupational status: employed Current occupation: [employer] Current occupational exposures/hazards: No Cognitive needs: No Hearing needs: No Vision needs: No Physical Exam Vital Signs: Last Vital Signs Pulse 88 11/30/24 15:02 BP 138/95 H 11/30/24 15:02 BMI result Body Mass Index 27.7 Assessment & Plan Assessment & Plan (1) Nonalcoholic steatohepatitis (BARKSDALE): Code(s): K75.81 - Nonalcoholic steatohepatitis (BARKSD[place]) Category: Medical Plan: as above Coding Level of Care Code Est Pt Level 3 (89998) Diagnoses Nonalcoholic steatohepatitis (BARKSD[place]) K75.81
--- OUTSIDE RECORDS SUMMARY | 2024-11-30 16:31 | XMS_ITS | Clinical Summary ---
Author Organization [facility] Address [address] [place] [address] Phone Care Team Providers Care Roads And Parking Lots Sweeper Operator Name Role Phone Omayra Flynn MD Primary Care Provider [phone] Allergies No known active allergies Medications bisacodyL (DULCOLAX) 5 mg EC tablet Take 2 tablets by mouth right before your first dose of liquid prep. 10/10/2022 Active cholecalciferol (VITAMIN D-3) 50 mcg (2,000 unit) capsule Take 1 capsule (2,000 Units total) by mouth 1 (one) time each day. 90 each 3 07/06/2024 5 Active Active Problems No known active problems Immunizations Name Administration Dates Next Due Moderna SARS-CoV-2 COVID-19, mRNA, LNP-S, preservative free 02/08/2021,01/11/2021 Surgical History Surgery Date Site/Laterality Comments TUBAL LIGATION PROCEDURE: HISTORICAL TUBAL LIGATION BELT ABDOMINOPLASTY PROCEDURE: HISTORICAL TUMMY TUCK OTHER SURGICAL HISTORY 2015 PROCEDURE: [place] HYSTEROSCOPY ENDOMETRIAL ABLATION Medical History Medical History Date Comments Anemia DX:Anemia Heart abnormality DX:Heart abnor mality History of genital injury 01/2019 DX:His tory of genital injury; COMMENT: while jet skiing, seen in [facility], stable at dischage Type 2 diabetes mellitus wit hout complications (CMS/HCC V24, CMS/HCC V28) 2022 DX:Type 2 diabetes mellitus without complications [...] 3 3 Date Outcome GA Total Labor Labor//3rd Weight Sex Type Anes PTL Renate A1 [...] COVID-19 Vaccine ( season) 2024 02/08/2021, 01/11/2021 Cervical Cancer Screening: HPV 02/07/2025 02/08/2020 Influenza Vaccine (Season Ended) 2025 Breast Cancer Screening 02/16/2026 02/17/20 24, 02/15/2024, [...] age to complete this topic Meningococcal B Vaccine Aged Out No l onger eligible based on patient's age to complete [...] Procedure Name Priority Date/Time Associated Diagnosis Comments [facility] SCREENING DIGITAL Routine 02/17/2024 10:12 AM EDT Encounter for screening mammogram for malignant neoplasm of breast HEPATITIS C SCREENING Routine 04/09/2022 HIV SCREENING Routine 04/09/2022 HPV Routine 02/08/2020 from Last 3 Months or Most Recently Relevant to Health Maintenance Results * SHAE SCREENING DIGITAL (02/17/2024 10:12 AM EDT) Anatomical Region Laterality Modality Mammography 02/13/2024 10:4 7 AM EDT Narrative 02/17/2024 10:12 AM EDT [facility] Diagnostic Imaging Department [address] [place] [address] Patient: ??ARNAV,IVÁN ?/Age/Sex: 1975 - 49 - F Unit#: ??[id number] ? Location/Status: ??SPDIMAM/REG CLI ? Mnemonic/Ordering Site: ??DIGSC/SPMAM Ordering Physician: ??RACHAEL GONSALVES CNM [facility] Screening Digital - 02/15/24 - 1044 Report Status:Signed EXAM: [facility] Screening Digital EXAM DATE AND TIME: 02/15/2024 10:45 AM HISTORY: ??Annual screening COMPARISON: ??2023 and 01/12/2019 TECHNIQUE: Bilateral digital breast tomosynthesis was performed in the CC and MLO projections. Computer aided detection with [employer] 7.2-H and Allied [employer] 3D 3.1 was employed. TISSUE DENSITY: b. [...] Procedure Note Rena Beebe MD - 05/13/2024 [facility] Diagnostic Imaging Department [address] [place], [place] [id number] Patient: IVÁN HOROWITZ /Age/Sex: 1975 - 49 - F Unit#: [id number] Location/Status: SPDIMAM/REG CLI Mnemonic/Ordering Site: [facility] Ordering Physician: RACHAEL GONSALVES CNM [facility] Screening Digital - 02/15/24 - 1044 Report Status:Signed EXAM: [facility] Screening Digital EXAM DATE AND TIME: 02/15/2024 10:45 AM HISTORY: Annual screening COMPARISON: 2023 and 01/12/2019 TECHNIQUE: Bilateral digital breast tomosynthesis was performed in the CCand MLO projections. Computer aided detection with Moko [employer] 7.2-H andAllied Fiber 3D 3.1 was employed. TISSUE DENSITY: b. [...] Date/Time: 02/17/24 1007 Sign date/Time: 02/17/24 1012 us Rachael Gonsalves CNM IMG BI PROCEDURES Final Result * HIV Screening (04/09/2022) HIV Screening abstracted Historical Provider HEALTH MAINTENANCE Final Result * Hepatitis C Screening (04/09/2022) Hepatitis C Screening abstracted Historical Provider HEALTH MAINTENANCE Final Result * Cervical Cancer Screening: HPV (02/08/2020) Cervical Cancer Screening: HPV negative, abstracted Historical Provider HEALTH MAINTENANCE Final Result from Last 3 Months or Most Recently Relevant to Health Maintenance Insurance [facility] Care Teams Roads And Parking Lots Sweeper Operator Relationship Specialty Start Date End Date Omayra Flynn MD [address] [place] [address] , [address] [facility] Physician Associ D/B/A: [facility] EPIFANIO Balderas PCP - General Internal Medicine 02/27/17
== END 2024-11-30 15:41 | disposition home or self-care (01) ==
LOC: HO.HGI 14:57
PROVIDERS: PCP Internal Medicine; Visit Provider Internal Medicine Gastroenterology
DX: K75.81 Nonalcoholic steatohepatitis (NASH) (principal)
CPT/HCPCS: 99213

== ENCOUNTER → 2024-11-30 14:56 | Outpatient (BNVA) | payer OTHER, SELFPAY | PROVIDERS: PCP Internal Medicine; Visit Provider Internal Medicine Gastroenterology | DX: K75.81 Nonalcoholic steatohepatitis (NASH) (principal) | CPT/HCPCS: 99212 ==

== ENCOUNTER 2024-12-30 07:10 | Outpatient (REF) | payer OTHER, SELFPAY ==
[2024-12-30 08:26] LABS: Creatinine Urine 367.55 mg/dL
[2024-12-30 08:35] LABS: Alanine Aminotransferase 32 U/L (0-31); Albumin Level 4.1 g/dL (3.5-5.0); Anion Gap 13 (12-20); Aspartate Amino Transferase 30 U/L (5-31); Bilirubin Total 0.9 mg/dL (0.0-1.0); Blood Urea Nitrogen 14 mg/dL (9-16); Calcium 9.3 mg/dL (8.4-10.2); Carbon Dioxide 27 mmol/L (22-29); Chloride 107 mmol/L (96-108); Cholesterol 193 mg/dL (<200); Estimated Glomerular Filt Rate > 60; Glucose Fasting 159 mg/dL (60-99); HDL Cholesterol 37 mg/dL (>40); LDL Cholesterol Calculated 127 mg/dL (<100); Potassium 3.8 mmol/L (3.3-5.1); Sodium 143 mmol/L (135-145); Total Protein 6.7 g/dL (6.5-8.0); Triglycerides 148 mg/dL (<150)
[2024-12-30 08:58] LABS: Vitamin D 25-OH Total 27.8 ng/mL (>30)
[2024-12-30 13:07] LABS: Alkaline Phosphatase 159 U/L (39-117)
== END 2024-12-30 07:11 | disposition home or self-care (01) ==
LOC: HO.LAB 07:10
PROVIDERS: PCP Internal Medicine; Visit Provider Internal Medicine
DX: R80.9 Proteinuria, unspecified (principal); E11.9 Type 2 diabetes mellitus without complications; E78.5 Hyperlipidemia, unspecified; E55.9 Vitamin D deficiency, unspecified
CPT/HCPCS: 36415; 80053; 80061; 82043; 82306; 82570

== ENCOUNTER 2024-12-31 08:10 | Outpatient (AMB) | payer OTHER, SELFPAY ==
--- NOTE | 2024-12-31 08:16 | A.OFFPC_ITS ---
Vital Signs 12/31/24 08:17 Height 5 ft 9 in Weight 191 lb BMI 28.2 BP 120/80 Blood Pressure Location Lt brachial Position Sitting Intake Visit Reasons: DM Intake Note: Patient here for a follow up DM Space Systems Operations Manager Required: No Accompanied by: Self / Same As Patient Allergies metformin Adverse Reaction (Intermediate, Uncoded 12/31/24 08:33) abdominal pain, diarrhea Medication List - Last Reconciled 12/31/24 by Omayra Flynn MD blood sugar diagnostic (FreeStyle Lite Strips) Use 1 test strip once a day blood-glucose meter (FreeStyle Lite Meter kit) As directed cholecalciferol (vitamin D3) 25 mcg PO DAILY 90 days lancets (FreeStyle Lancets) Use 1 lancet once a day Tobacco use date assessed: 08/27/24 Dental Screening Dental Screen Date: 08/27/24 HPI HPI Comments History of Present Illness Details The patient is a 49-year-old female presenting with a follow-up appointment to address her Type 2 Diabetes Mellitus, medication management, and related health concerns. Her blood glucose level was noted at 159 mg/dL, and she is currently using Trulicity, a medication she expresses preference for due to its once-weekly dosing schedule and its role in aiding weight management. She reports a past allergic reaction to Metformin, manifesting as diarrhea and abdominal pain. Her hypertension, previously recorded at 120/80 mmHg, is being monitored, although current treatments specific to hypertension are not detailed in this encounter. Recently, her laboratory results showed an A1c level of 6.7%. A liver biopsy revealed fatty liver with mild inflammation and fibrosis, for which she has been advised to take Vitamin E. She indicates a history of success using atorvastatin 20 mg for cholesterol, which she finds preferable to alternative medications. Despite normal total cholesterol at 193 mg/dL, her LDL is noted at 127 mg/dL, exceeding the target of 70 mg/dL for diabetic patients. From a mental health perspective, the patient acknowledges feelings of mild depression with a PHQ-9 score of 5 and expresses some anxiety, particularly with an upcoming upholsterer helper appointment. She has utilized counseling services but is unsure of her current interest in returning to therapy. [facility] Medical History (Updated 12/31/24 @ 08:47 by Omayra Flynn MD) Right knee pain Transaminitis Surgical History H/O tubal ligation H/O heart surgery Hx of vaginal surgery H/O tubal ligation Family History Father Diabetes Mother Diabetes Brother No problems noted. Brother No problems noted. Brother No problems noted. Brother No problems noted. Brother No problems noted. Brother No problems noted. Sister No problems noted. Son No problems noted. Daughter No problems noted. Social History Housing: House Alcohol intake: current Alcohol intake frequency: holidays/special occasions only Alcohol type: wine Patient Tobacco Use Status: Never used Tobacco e-Cigarette/Vaping Use: Never Used Second Hand Smoke Exposure: No service: No Current occupational status: employed Current occupation: [employer] Current occupational exposures/hazards: No Cognitive needs: No Hearing needs: No Vision needs: No Questionnaire PHQ-9 Over the last 2 weeks, how often have you been bothered by any of the following problems? 1. Little interest or pleasure in doing things: several days 2. Feeling down, depressed, or hopeless: several days 3. Trouble falling or staying asleep, or sleeping too much: not at all 4. Feeling tired or having little energy: several days 5. Poor appetite or overeating: several days 6. Feeling bad about yourself - or that you are a failure or have let yourself or your family down: not at all 7. Trouble concentrating on things, such as reading the newspaper or watching television: several days 8. Moving or speaking so slowly that other people could have noticed. Or the opposite - being so fidgety or restless that you have been moving around a lot more than usual: not at all 9. Thoughts that you would be better off or of hurting yourself in some way: not at all Total score: 5 Depression Screening Interpretation: Positive Depression Screening Follow-up: Existing condition, Follow-up Visit Requested and Declines treatment Depression Screening Done: Yes 59406 - PHQ-9 Billing: Yes Source: Developed by Drs. Derrick Howe, Marcia Martin, Ricardo Malave and colleagues, with an educational maddi from [employer]. Thrive Questionnaire Date Thrive assessed: 08/20/24 I am a: Patient What is your living situation today?: I have a steady place to live Within the past 12 months, did the food you bought not last and you didn't have the money to get more?: Sometimes True Within the past 12 months, did you worry whether your food would run out before you got money to buy more?: Sometimes True Do you have trouble paying for medicines?: No Do you have trouble getting transportation to medical appointments?: No Do you have trouble paying your heating and electricity bill?: No Do you have trouble taking care of your child, family member or friend?: No Do you have trouble with day-to-day activities such as bathing, preparing meals, shopping, managing finances, etc.?: No Are you currently unemployed and looking for a job?: No Are you interested in more education?: Yes Please select the resources that you would like help with: None Currently or been in a relationship where the following occur: No concerns reported THRIVE Score: 2 AUDIT C Alcohol Use Questionnaire (AUDIT-C) 1. How often do you have a drink containing alcohol?: Monthly or less 2. How many drinks containing alcohol do you have on a typical day when you are drinking?: 1 or 2 3. How often do you have six or more drinks on one occasion?: Never Total Score: 1 Score Reviewed/Action Taken: No ADDIE-7 AMB Questionnaire ADDIE-7 Date ADDIE - 7 assessed: 08/27/24 Source: Developed by Drs. Derrick Howe, Marcia Martin, Ricardo Malave and colleagues, with an educational maddi from [employer]. Review of Systems Const All systems reviewed & are unremarkable except as noted in HPI and below Card Denies chest pain at rest, Denies chest pain with activity, Denies edema, Denies irregular heart rhythm, Denies claudication, Denies dyspnea, Denies dyspnea on exertion, Denies orthopnea, Denies paroxysmal nocturnal dyspnea and Denies slow heart rate Resp Denies cough, Denies dyspnea and Denies dyspnea on exertion GI Denies abdominal pain, Denies change in bowel habits, Denies excessive flatus, Denies nausea and Denies vomiting Denies urinary incontinence, Denies urinary hesitancy and Denies urinary urgency Musc Denies abnormal gait, Denies atrophy, Denies deformity and Denies limited range of motion Skin/Breast Denies bleeding lesions, Denies changing lesions and Denies rash Neuro Denies abnormal gait and Denies lack of coordination Physical exam (Primary Care) Vital Signs: Last Vital Signs BP 120/80 12/31/24 08:17 BMI result Body Mass Index 28.2 Tobacco/Smoking Status: Tobacco use Status Tobacco use date assessed 08/27/24 12/31/24 08:22 Patient Tobacco Use Status Never used Tobacco 12/31/24 08:22 e-Cigarette/Vaping Use Never Used 12/31/24 08:22 PHQ-9: PHQ-9 Score PHQ-9: Total score 5 12/31/24 08:34 Depression Screening Interpretation: Positive Depression Screening Follow-up: Existing condition, Follow-up Visit Requested and Declines treatment Thrive Assessment: Date of Thrive Assessment Date Thrive assessed 08/20/24 12/31/24 08:22 Currently or been in a relationship where the following occur: No concerns reported Resp Effort & Inspection: normal respiratory effort Auscultation: clear to auscultation bilaterally Cardio Jugular venous distension: no JVD Rate: regular rate Rhythm: regular rhythm Heart sounds: S1 normal heart sound present and S2 normal heart sound present Extrem General: Yes full ROM Results AMB Hemoglobin A1c AMB Hemoglobin A1c 6.7 % Last Edit by RILEY Metz on 12/31/24 08:3 3 Results Reviewed Results Reviewed: Laboratory Last Values Hgb A1c (Clinic) 6.7 % (4.0-6.0) H 12/31/24 08:26 Coding Level of Care Code Est Pt Level 4 (66794) Complex EM visit Add On G2211 Diagnoses Type 2 diabetes mellitus without complication, without long-term current use of insulin E11.9 Diabetes mellitus type: type 2 Diabetes mellitus chcf insulin use: without chcf use Diabetes mellitus complication status: without complication Hyperlipidemia LDL goal <70 E78.5 Low vitamin D level R79.89 Nonalcoholic steatohepatitis ([place]) K75.81 Mild recurrent major depression F33.0 Palpitations R00.2 Additional Codes PHQ-9 - 98027 - PHQ-9 Billing: Yes ([id number]) Time Spent (min) 23 Assessment & Plan Assessment & Plan (1) Diabetes mellitus: Code(s): E11.9 - Type 2 diabetes mellitus without complications Category: Medical Qualifiers: Diabetes mellitus type: type 2 Diabetes mellitus terminal manager insulin use: without terminal manager use Diabetes mellitus complication status: without complication Qualified Code(s): E11.9 - Type 2 diabetes mellitus without complications (2) Hyperlipidemia LDL goal <70: Code(s): E78.5 - Hyperlipidemia, unspecified Category: Medical (3) Low vitamin D level: Code(s): R79.89 - Other specified abnormal findings of blood chemistry Category: Medical (4) Nonalcoholic steatohepatitis ([place]): Code(s): K75.81 - Nonalcoholic steatohepatitis ([place]) Category: Medical (5) Mild recurrent major depression: Code(s): F33.0 - Major depressive disorder, recurrent, mild Category: Medical (6) Palpitations: Code(s): R00.2 - Palpitations Category: Medical Plan Increase Trulicity to 1. 5 mg weekly to enhance glycemic control and support weight loss. Atorvastatin 20 mg is reinstated to reduce LDL cholesterol, aligning with her diabetic lipid targets. Vitamin D and Vitamin E are supplemented to address deficiencies and support liver health. Her mild depression and anxiety will be observed, and counseling remains an option per her interest. I advise repeating labs in four months to evaluate her ongoing therapeutic progress. A1c goal is less than 7%. LDL goal is less than 70. Blood pressure goal is less than 130/80. Patient was informed and verbally consented to the use of an ambient scribe for clinic note documentation during this visit. During our discussion, we reviewed her current health status, mainly focusing on diabetes management and lipid control. I emphasized the rationale for increasing Trulicity to enhance her diabetes care, highlighting its dual benefit for blood glucose and weight loss. The decision to prescribe atorvastatin was clarified, noting its efficacy in reducing the risk of cardiovascular complications in diabetic patients. The patient was informed of her allergy to Metformin and reassured about the effectiveness of alternative medications. We acknowledged her feelings of anxiety and mild depression, offering continued access to psychotherapy. The necessity of Vitamin D and E supplements was explained, particularly for bone health and liver function. The patient consented to all proposed interventions, understanding the potential adjustments if her insurance plan does not cover specific medications. Orders: Orders AMB Hemoglobin A1c Today E11.9 - Type 2 diabetes mellitus without complications Medications: New dulaglutide (Trulicity) 1.5 mg (0.5 mL) subcut QWEEK 4 weeks 2 mL 6RF E11.9 - Type 2 diabetes mellitus without complications atorvastatin 10 mg PO BEDTIME 90 days 90 tabs 1RF Discontinued dulaglutide (Trulicity) Discontinued Reason: Patient Completed Course 0.75 mg (0.5 mL) subcut QWEEK 90 days 6.5 mL 3RF E11.9 - Type 2 diabetes mellitus without complications Patient Instructions: - Increase Trulicity to 1.5 mg once weekly. - Take atorvastatin 20 mg as prescribed. - Supplement with Vitamin D and Vitamin E as recommended. - Monitor blood glucose regularly. - Follow a diet low in sugar. - Attend your upholsterer helper appointment next week. - Repeat labs in four months for review. - Contact the clinic if experiencing anxiety or depressive symptoms worsening.
[2024-12-31 08:17] VITALS: BP 120/80; BMI 28.2
--- OUTSIDE RECORDS SUMMARY | 2024-12-31 08:17 | XMS_ITS | Clinical Summary ---
Author Organization [facility] Address [address] [place] [address] Phone Care Team Providers Care Polish Maker Name Role Phone Omayra Flynn MD Primary Care Provider [phone] Allergies No known active allergies Medications bisacodyL [...] TUMMY TUCK OTHER SURGICAL HISTORY 2015 PROCEDURE: [place] HYSTEROSCOPY ENDOMETRIAL ABLATION Medical History Medical History Date Comments Anemia DX:Anemia Heart abnormality DX:Heart abnor mality History of genital injury 01/2019 DX:His tory of genital injury; COMMENT: while jet skiing, seen in [facility], stable at dischage Type 2 diabetes mellitus [...] 07/06/2024 3:25 PM EST Plan of Treatment Upcoming Encounters Date Type Department Care Team (Late st Contact Info) Description 02/18/2025 9:30 AM EDT Appointment [facility] [address] [address] Health Maintenance Due Date Last Done Comments [...] Procedure Name Priority Date/Time Associated Diagnosis Comments [facility] SCREENING DIGITAL Routine 02/17/2024 10:12 AM [...] AM EDT Narrative 02/17/2024 10:12 AM EDT [facility] Diagnostic Imaging Department [address] [place], [place] [id number] Patient: ??IVÁN HOROWITZ ?/Age/Sex: 1975 - 49 - F Unit#: ??[id number] ? Location/Status: ??SPDIMAM/REG CLI ? Mnemonic/Ordering Site: ??DIGSC/SPMAM Ordering Physician: ??RACHAEL GONSALVES CNM [facility] Screening Digital - 02/15/24 - 1044 Report Status:Signed EXAM: [facility] Screening Digital EXAM DATE AND TIME: 02/15/2024 10:45 AM HISTORY: ??Annual screening COMPARISON: ??2023 and 01/12/2019 TECHNIQUE: Bilateral digital breast tomosynthesis was performed in the CC and MLO projections. Computer aided detection with [employer] 7.2-H and UpDown 3D 3.1 was employed. TISSUE DENSITY: b. [...] Procedure Note Rena Beebe MD - 05/13/2024 [facility] Diagnostic Imaging Department [address] [place] [id number] Patient: IVÁN HOROWITZ /Age/Sex: 1975 - 49 - F Unit#: [id number] [facility] Mnemonic/Ordering Site: [facility] Ordering Physician: RACHAEL GONSALVES CNM [facility] Screening Digital - 02/15/24 - 1044 Report Status:Signed EXAM: [facility] Screening Digital EXAM DATE AND TIME: 02/15/2024 10:45 AM HISTORY: Annual screening COMPARISON: 2023 and 01/12/2019 TECHNIQUE: Bilateral digital breast tomosynthesis was performed in the CCand MLO projections. Computer aided detection with [employer] 7.2-H and[employer] AI 3D 3.1 was employed. TISSUE DENSITY: b. [...] 02/17/24 1007 Sign date/Time: 02/17/24 1012 Result [facility] Rachael Gonsalves CN IMG BI PROCEDURES Final Result * HIV Screening (04/09/2022) HIV Screening abstracted Historical Provider HEALTH MAINTENANCE Final Result * Hepatitis C Screening (04/09/2022) Hepatitis C Screening abstracted Historical Provider HEALTH MAINTENANCE Final Result * Cervical Cancer Screening: HPV (02/08/2020) Cervical Cancer Screening: HPV negative, abstracted Historical Provider HEALTH MAINTENANCE Final Result from Last 3 Months or Most Recently Relevant to Health Maintenance Insurance [facility] Care Teams Polish Maker Relationship Specialty Start Date End Date Omayra Flynn MD [address] [place] [address] , [address] [facility] D/B/A: [facility] EPIFANIO Balderas PCP - General Internal Medicine 02/27/17
== END 2024-12-31 08:45 | disposition home or self-care (01) ==
LOC: HO.HMCH 08:11
PROVIDERS: PCP Internal Medicine; Visit Provider Internal Medicine
DX: E11.9 Type 2 diabetes mellitus without complications (principal); E78.5 Hyperlipidemia, unspecified; R79.89 Other specified abnormal findings of blood chemistry; K75.81 Nonalcoholic steatohepatitis (NASH); F33.0 Major depressive disorder, recurrent, mild; R00.2 Palpitations

== ENCOUNTER → 2024-12-31 08:10 | Outpatient (BNVA) | payer OTHER, SELFPAY | PROVIDERS: PCP Internal Medicine; Visit Provider Internal Medicine | DX: E11.9 Type 2 diabetes mellitus without complications (principal); I10 Essential (primary) hypertension; E78.5 Hyperlipidemia, unspecified; R79.89 Other specified abnormal findings of blood chemistry; K75.81 Nonalcoholic steatohepatitis (NASH); F33.0 Major depressive disorder, recurrent, mild; R00.2 Palpitations; Z79.899 Other long term (current) drug therapy | CPT/HCPCS: 83036; 96127; 99212 ==

== ENCOUNTER 2025-01-07 08:33 | Outpatient (AMB) | payer OTHER, SELFPAY ==
--- NOTE | 2025-01-07 08:40 | MHC.OFFVIS ---
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 Income Tax Administrator Required: Yes Income Tax Administrator Language: Behavior Management Specialist Name: [email or web address] Accompanied by: Self / Same As Patient Allergies metformin Adverse Reaction (Intermediate, Uncoded 12/31/24 08:33) abdominal pain, diarrhea Medication List - Last Reconciled 01/07/25 by Perez Hand MD atorvastatin 10 mg PO BEDTIME 90 days blood sugar diagnostic (FreeStyle Lite Strips) Use 1 test strip once a day blood-glucose meter (FreeStyle Lite Meter kit) As directed cholecalciferol (vitamin D3) 25 mcg PO DAILY 90 days dulaglutide (Trulicity) 1.5 mg (0.5 mL) subcut QWEEK 4 weeks lancets (FreeStyle Lancets) Use 1 lancet once a day HPI Comments Details: Nevin is here for consultation regarding palpitations. She states that she gets random episodes where she feels her heart fluttering. That is bothering her lot and making it very anxious. She can get these symptoms any time. She describes a cardiac procedure done through her groin apparently many years ago. This was done at [facility] but she cannot recall any information. Not clear if it was some form of a cardiac ablation. Otherwise, she also describes episodes of chest burning at different times. Sometimes can happen at nighttime when she is lying down. However, denies any occurrence during physical activity. She states she has no history of acid reflux. However, not classical for angina either. [facility] Medical History Right knee pain Transaminitis Surgical History H/O tubal ligation H/O heart surgery Hx of vaginal surgery H/O tubal ligation Family History Father Diabetes Mother Diabetes Brother No problems noted. Brother No problems noted. Brother No problems noted. Brother No problems noted. Brother No problems noted. Brother No problems noted. Sister No problems noted. Son No problems noted. Daughter No problems noted. 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 Current occupational exposures/hazards: No Cognitive needs: No Hearing needs: No Vision needs: No Review of Systems Const Denies chills, Denies fatigue, Denies fever(s), Denies frequent falls, Reports weakness, Denies weight gain and Denies weight loss ENT Reports dizziness Card Reports chest pain, Reports leg edema, Denies lightheadedness, Reports palpitations, Reports dyspnea, Reports dyspnea on exertion and Denies orthopnea Resp Denies cough, Reports dyspnea and Reports dyspnea on exertion GI Denies bloating and Denies change in bowel habits Musc Denies muscle weakness, Denies numbness and Denies tingling Neuro Reports dizziness, Denies frequent falls, Denies numbness, Denies tingling and Reports weakness Endo Denies fatigue and Reports palpitations Physical Exam Vital Signs: Last Vital Signs Pulse 95 01/07/25 08:41 BP 130/80 01/07/25 08:41 BMI result Body Mass Index 28.6 Const General: comfortable and no acute distress Orientation/consciousness: patient oriented x3 HEENT Other: Unremarkable Head: Yes normal to inspection Neck Neck: Yes normal visual inspection Chest Chest palpation & inspection: normal inspection of the chest Resp Auscultation: clear to auscultation bilaterally Cardio Palpation: normal PMI Heart sounds: S1 normal heart sound present, S2 normal heart sound present, no gallops, no murmurs and no rubs GI Palpation (GI): Soft to palpation Back/Spine/Pelvis Other: unremarkable Skin General skin exam: no rashes or lesions noted Neuro General: patient oriented x3 Extrem General: Yes normal to inspection Psych Mental Status: mental status grossly normal Office Procedures EKG Details: EKG with sinus rhythm at 95/Min; no significant ST-T changes; [place]. [id number], Complete Assessment & Plan Assessment & Plan (1) Palpitations: Code(s): R00.2 - Palpitations Category: Medical Plan: Unclear if this any ablation done in the past. We will request records from [facility] if any available. In the Holter monitor, she had frequent sinus tachycardia. However, she feels that it did not capture all her symptoms. Hence we will do a longer term monitor for 7 days. In a prior echocardiogram, preserved LVEF. (2) Precordial chest pain: Code(s): R07.2 - Precordial pain Category: Medical Plan: Atypical for angina but she is a diabetic. We will get a coronary CTA. (3) Diabetes mellitus: Code(s): E11.9 - Type 2 diabetes mellitus without complications Category: Medical Qualifiers: Diabetes mellitus complication status: without complication Diabetes mellitus intermediate card tender insulin use: without assisted use Diabetes mellitus type: type 2 Qualified Code(s): E11.9 - Type 2 diabetes mellitus without complications Plan: Reasonable control. Hemoglobin A1c is 6.7%. Orders: Orders ECG 7 day holter monitor Today R00.2 - Palpitations CT Cardiac Coronary Angio Today I25.10 - Atherosclerotic heart disease of [place] coronary artery without angina pectoris Basic Metabolic Panel Today R07.2 - Precordial pain Coding Level of Care Code New Pt Level 4 (10700) Complex EM visit Add On G2211 Diagnoses Palpitations R00.2 Precordial chest pain R07.2 Type 2 diabetes mellitus without complication, without long-term current use of insulin E11.9 Diabetes mellitus complication status: without complication Diabetes mellitus intermediate card tender insulin use: without assisted use Diabetes mellitus type: type 2 CPT Codes EKG - CPT: 85809-[id number], Complete ([id number])
[2025-01-07 08:41] VITALS: BP 130/80; PULSE 95; BMI 28.6
--- OUTSIDE RECORDS SUMMARY | 2025-01-07 08:47 | XMS_ITS | Clinical Summary ---
Author Organization [facility] Address [address] [place] [address] Phone Care Team Providers Care Effervescent Salts Compounder Name Role Phone Omayra Flynn MD Primary Care Provider [phone] Allergies No known active allergies Medications bisacodyL [...] TUMMY TUCK OTHER SURGICAL HISTORY 2015 PROCEDURE: OR HYSTEROSCOPY ENDOMETRIAL ABLATION Medical History Medical History Date Comments Anemia DX:Anemia Heart abnormality DX:Heart abnor mality History of genital injury 01/2019 DX:His tory of genital injury; COMMENT: while jet skiing, seen in [facility], stable at dischage Type 2 diabetes mellitus [...] AM EDT [facility]ment [facility] [address] [address] Health Maintenance Due Date Last [...] Procedure Name Priority Date/Time Associated Diagnosis Comments [facility] SCREENING DIGITAL Routine 02/17/2024 10:12 AM EDT [...] [facility] Diagnostic Imaging Department [address] [place], [place] [id number] Patient: ??IVÁN HOROWITZ ?/Age/Sex: 1975 - 49 - F Unit#: ??[id number] ? Location/Status: ??SPDIMAM/REG CLI ? Mnemonic/Ordering Site: ??DIGSC/SPMAM Ordering Physician: ??RACHAEL GONSALVES CNM [facility] Screening Digital - 02/15/24 - 1044 Report Status:Signed EXAM: [facility] Screening Digital EXAM DATE AND TIME: 02/15/2024 10:45 AM HISTORY: ??Annual screening COMPARISON: ??2023 and 01/12/2019 TECHNIQUE: Bilateral digital breast tomosynthesis was performed in the CC and MLO projections. Computer aided detection with [employer] 7.2-H and [employer] 3D 3.1 was employed. TISSUE DENSITY: b. [...] [facility] Diagnostic Imaging Department [address] [place] [id number] Patient: IVÁN HOROWITZ /Age/Sex: 1975 - 49 - F Unit#: [id number] [facility]/Ordering Site: [facility] Ordering Physician: RACHAEL GONSALVES CNM [facility] Screening Digital - 02/15/24 - 1044 Report Status:Signed EXAM: [facility] Screening Digital EXAM DATE AND TIME: 02/15/2024 10:45 AM HISTORY: Annual screening COMPARISON: 2023 and 01/12/2019 TECHNIQUE: Bilateral digital breast tomosynthesis was performed in the CCand MLO projections. Computer aided detection with [employer] [place] 7.2-H and[employer] AI 3D 3.1 was employed. TISSUE DENSITY: [...] 02/17/24 1007 Sign date/Time: 02/17/24 1012 Result [facility] Rachael Gonsalves CN IMG BI PROCEDURES Final [...] Most Recently Relevant to Health Maintenance Insurance [facility] [place] [address] Care Teams Effervescent Salts Compounder Relationship Specialty Start Date End Date Omayra Flynn MD [address] [place] [address] , [address] [facility] Physician Associ D/B/A: [facility] EPIFANIO Balderas PCP - General Internal Medicine 02/27/17
== END 2025-01-07 09:09 | disposition home or self-care (01) ==
LOC: HO.HCS 08:34
PROVIDERS: PCP Internal Medicine; Visit Provider Internal Medicine
DX: R00.2 Palpitations (principal); R07.2 Precordial pain; E11.9 Type 2 diabetes mellitus without complications
CPT/HCPCS: 93010; 99204; G2211

== ENCOUNTER → 2025-01-07 08:33 | Outpatient (BNVA) | payer OTHER, SELFPAY | PROVIDERS: PCP Internal Medicine; Visit Provider Internal Medicine | DX: R00.2 Palpitations (principal); R07.2 Precordial pain; E11.9 Type 2 diabetes mellitus without complications; I25.10 Atherosclerotic heart disease of native coronary artery without angina pectoris | CPT/HCPCS: 93005; 99202 ==

== ENCOUNTER → 2025-02-04 07:40 | Outpatient (REF) | payer OTHER, SELFPAY ==
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
--- NOTE | 2025-02-04 07:46 | HM_ITS ---
Conclusion: 1. Patient was monitored for total period of 6 days and 23 hours 2. Baseline was normal sinus rhythm with average heart of 88 beats per minute 3. Occasional to frequent PVCs noted with total burden of 1.5% without any significant runs 4. No significant pauses noted 5. Patient marked the event 2 times correlating with PVCs MTDD
== END ==
LOC: HO.CARD 07:40
PROVIDERS: PCP Internal Medicine; Visit Provider Internal Medicine
DX: R00.2 Palpitations (principal)
CPT/HCPCS: 93242

== ENCOUNTER → 2025-02-04 07:46 | Outpatient (BNV) | payer OTHER, SELFPAY | PROVIDERS: PCP Internal Medicine; Visit Provider Internal Medicine Cardiovascular Disease | DX: I49.3 Ventricular premature depolarization (principal) | CPT/HCPCS: 93244 ==

== ENCOUNTER 2025-03-16 07:16 | Outpatient (REF) | payer OTHER, SELFPAY ==
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
[2025-03-16 08:45] LABS: Anion Gap 15 (12-20); Blood Urea Nitrogen 14 mg/dL (9-16); Calcium 9.3 mg/dL (8.4-10.2); Carbon Dioxide 25 mmol/L (22-29); Chloride 105 mmol/L (96-108); Estimated Glomerular Filt Rate > 60; Potassium 3.8 mmol/L (3.3-5.1); Sodium 141 mmol/L (135-145)
== END 2025-03-16 07:17 | disposition home or self-care (01) ==
LOC: HO.LAB 07:16
PROVIDERS: PCP Internal Medicine; Visit Provider Internal Medicine
DX: R07.2 Precordial pain (principal)
CPT/HCPCS: 36415; 80048

== ENCOUNTER 2025-03-25 08:17 | Outpatient (AMB) | payer OTHER, SELFPAY ==
[2025-03-25 08:18] VITALS: BP 138/80; PULSE 86; TEMP 36.7; O2SAT 98; BMI 28.5
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
== END 2025-03-25 09:16 | disposition home or self-care (01) ==
PROVIDERS: PCP Internal Medicine; Visit Provider Nurse Practitioner Family
DX: S93.402A Sprain of unspecified ligament of left ankle, initial encounter (principal); S83.92XA Sprain of unspecified site of left knee, initial encounter

== ENCOUNTER → 2025-03-25 08:17 | Outpatient (BNVA) | payer OTHER, SELFPAY | PROVIDERS: PCP Internal Medicine; Visit Provider Nurse Practitioner Family | DX: S93.402A Sprain of unspecified ligament of left ankle, initial encounter (principal); S83.92XA Sprain of unspecified site of left knee, initial encounter; X58.XXXA Exposure to other specified factors, initial encounter; Y93.9 Activity, unspecified; Y92.9 Unspecified place or not applicable; Y99.9 Unspecified external cause status | CPT/HCPCS: 99212 ==

== ENCOUNTER 2025-03-26 09:36 | Outpatient (AMB) | payer OTHER, SELFPAY ==
[2025-03-26 09:40] VITALS: BP 120/82; PULSE 69; BMI 27.9
--- NOTE | 2025-03-26 09:40 | MHC.OFFVIS ---
Vital Signs 03/26/25 09:40 Height 5 ft 9 in Weight 189 lb 2.506 oz BMI 27.9 BP 120/82 Blood Pressure Location Lt brachial Position Sitting Pulse 69 Pulse Source Pulse Oximeter Intake Visit Reasons: f/u after CTA/holter Dry Transfer Worker Required: Yes Dry Transfer Worker Name: voice varela [id number] Allergies metformin Adverse Reaction (Intermediate, Uncoded 03/26/25 09:41) abdominal pain, diarrhea Medication List - Last Reconciled 03/26/25 by Rianna Leavitt, EXCHANGE SPECIALIST-C atorvastatin 10 mg PO BEDTIME 90 days blood sugar diagnostic (FreeStyle Lite Strips) Use 1 test strip once a day blood-glucose meter (FreeStyle Lite Meter kit) As directed cholecalciferol (vitamin D3) 25 mcg PO DAILY 90 days dulaglutide (Trulicity) 1.5 mg (0.5 mL) subcut QWEEK 4 weeks lancets (FreeStyle Lancets) Use 1 lancet once a day meloxicam 7.5 mg PO DAILY 10 days HPI HPI f/u after CTA/holter: Details: Nevin is a 50-year-old female with past medical history of diabetes, hyperlipidemia who was being evaluated for heart palpitations and chest discomfort. She underwent a Holter monitor and a CTA of the coronary arteries and now presents for follow-up. Today she reports that she still gets heart palpitations but they are not causing much concern at this time. She no longer gets chest discomfort. No shortness of breath, PND, orthopnea, edema. No lightheadedness, presyncope, syncope, falls. Good activity tolerance. Taking meds as directed. Certified automotive assembler used. [facility] Medical History Sprain of left knee Sprain of left ankle Right knee pain Transaminitis Surgical History H/O tubal ligation H/O heart surgery Hx of vaginal surgery H/O tubal ligation Family History Father Diabetes Mother Diabetes Brother No problems noted. Brother No problems noted. Brother No problems noted. Brother No problems noted. Brother No problems noted. Brother No problems noted. Sister No problems noted. Son No problems noted. Daughter No problems noted. 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 Current occupational exposures/hazards: No Cognitive needs: No Hearing needs: No Vision needs: No Review of Systems Const All systems reviewed & are unremarkable except as noted in HPI and below ENT Denies dizziness Card Details: occassional heart palpitations Denies chest pain, Denies chest pain at rest, Denies chest pain with activity, Denies rapid heart rate, Denies pedal edema, Denies edema, Denies leg edema, Denies lightheadedness, Denies palpitations, Denies dyspnea, Denies dyspnea on exertion and Denies orthopnea Resp Denies cough, Denies dyspnea and Denies dyspnea on exertion GI Denies hematochezia and Denies change in stool character Musc Denies abnormal gait, Denies limited range of motion, Denies muscle cramps, Denies muscle weakness, Denies numbness, Denies radiating pain into limb, Denies stiffness and Denies tingling Neuro Denies abnormal gait, Denies dizziness, Denies numbness and Denies tingling Endo Denies palpitations Physical Exam Vital Signs: Last Vital Signs Pulse 69 03/26/25 09:40 BP 120/82 03/26/25 09:40 BMI result Body Mass Index 27.9 Const General: cooperative, healthy appearing, comfortable and no acute distress Orientation/consciousness: patient oriented x3 Neck Neck: Yes normal visual inspection Resp Effort & Inspection: normal respiratory effort Auscultation: clear to auscultation bilaterally, no rales, no rhonchi and no wheezes Cardio Rate: regular rate Rhythm: regular rhythm Heart sounds: S1 normal heart sound present, S2 normal heart sound present, no gallops, no murmurs and no rubs Neuro General: patient oriented x3 Extrem General: Yes normal to inspection Psych Appearance: grossly normal Mental Status: mental status grossly normal Speech and movement: Normal speech and movement present Assessment & Plan Assessment & Plan (1) Palpitations: Code(s): R00.2 - Palpitations Category: Medical Plan: Reported heart palpitations. Holter monitor done 02/04/2025 for 7 days shows sinus rhythm with average heart rate 88 beats per minute, PVCs 1.5% of time. Her symptoms correlated with PVCs. Echo done 01/03/2022 showed EF 55-60%. Reviewed results with her. Discussed reduction in caffeinated beverages, maintain good hydration and get adequate rest. Exercise as tolerated. No indication for med management at this time. Instructed to call if palpitations are increasing or if she has any presyncope/syncope. Cardiology follow-up PRN. (2) PVC (premature ventricular contraction): Code(s): I49.3 - Ventricular premature depolarization Category: Medical Plan: As above (3) Precordial chest pain: Code(s): R07.2 - Precordial pain Category: Medical Plan: Prior reports of chest discomfort which has since resolved. She did undergo a CTA of the coronary arteries on 03/18/2025 which showed no coronary artery disease. Continue with risk factor modification. Plan I discussed with the patient that her heart palpitations are due to premature ventricular contractions, which are not uncommon and can feel unusual. I advised her on lifestyle modifications to manage symptoms, including exercise, diet, and hydration. We reviewed the normal CT scan results and discussed follow-up care, including potential medication if palpitation symptoms worsen. Patient Instructions: - Maintain a healthy lifestyle with regular exercise, balanced diet, and adequate hydration. - Avoid stress, stimulants, and ensure sufficient rest. - Follow up with cardiology as needed, especially if symptoms worsen or fainting occurs. Patient was informed and verbally consented to the use of an ambient scribe for clinic note documentation during this visit. Visit time spent on chart review, interview, assessment, orders, documentation. Coding Level of Care Code Est Pt Level 3 (28490) Complex EM visit Add On G2211 Diagnoses Palpitations R00.2 PVC (premature ventricular contraction) I49.3 Precordial chest pain R07.2 Time Spent (min) 24
--- OUTSIDE RECORDS SUMMARY | 2025-03-26 10:24 | XMS_ITS | Clinical Summary ---
Author Organization [facility] Address [address] [place] [address] Phone Care Team Providers Care Curtain Supervisor Name Role Phone Omayra Flynn MD Primary Care Provider [phone] Allergies No known active allergies Medications bisacodyL [...] TUMMY TUCK OTHER SURGICAL HISTORY 2016 PROCEDURE: [place] HYSTEROSCOPY ENDOMETRIAL ABLATION Medical History Medical History Date Comments Anemia DX:Anemia Heart abnormality DX:Heart abnor mality History of genital injury 01/2019 DX:His tory of genital injury; COMMENT: while jet skiing, seen in [facility], stable at dischage Type 2 diabetes [...] Procedure Name Priority Date/Time Associated Diagnosis Comments [facility] SCREENING DIGITAL Routine 02/17/2024 10:12 AM [...] AM EDT Narrative 02/17/2024 10:12 AM EDT [facility] Diagnostic Imaging Department [address] [place] [address] [id number] Patient: IVÁN HOROWITZ /Age/Sex: 1975 - 49 - F Unit#: [id number] Location/Status: SPDIMAM/REG CLI Mnemonic/Ordering Site: [facility] Ordering Physician: RACHAEL GONSALVES CNM [facility] Screening Digital - 02/15/24 - 1044 Report Status:Signed EXAM: [facility] Screening Digital EXAM DATE AND TIME: 02/15/2024 10:45 AM HISTORY: Annual screening COMPARISON: 2023 and 01/12/2019 TECHNIQUE: Bilateral digital breast tomosynthesis was performed in the CC and MLO projections. Computer aided detection with Suda 7.2-H and Shoptiques 3D 3.1 was employed. TISSUE DENSITY: b. [...] Procedure Note Rena Beebe MD - 05/13/2024 [facility] Diagnostic Imaging Department [address] [place] [id number] Patient: IVÁN HOROWITZ /Age/Sex: 1975 - 49 - F Unit#: [id number] Location/Status: SPDIMAM/REG CLI Mnemonic/Ordering Site: [facility] Ordering Physician: RACHAEL GONSALVES CNM [facility] Screening Digital - 02/15/24 - 1044 Report Status:Signed EXAM: [facility] Screening Digital EXAM DATE AND TIME: 02/15/2024 10:45 AM HISTORY: Annual screening COMPARISON: 2023 and 01/12/2019 TECHNIQUE: Bilateral digital breast tomosynthesis was performed in the CCand MLO projections. Computer aided detection with Suda 7.2-H andShoptiques 3D 3.1 was employed. TISSUE DENSITY: b. [...] Final Result * HIV Screening (04/09/2022) Pathologist [facility] HIV Screening abstracted Historical Provider HEALTH MAINTENANCE Final Result * Hepatitis C Screening (04/09/2022) Pathologist [facility] Hepatitis C Screening abstracted Historical Provider HEALTH MAINTENANCE Final Result * Cervical Cancer Screening: HPV (02/08/2020) Pathologist [facility] Cervical Cancer Screening: HPV negative, abstracted Historical Provider HEALTH MAINTENANCE Final Result from Last 3 Months or Most Recently Relevant to Health Maintenance Insurance [facility] [address] Care Teams Curtain Supervisor Relationship Specialty Start Date End Date Omayra Flynn MD [address] [place] [address] , [address] [facility] D/B/A: [facility] EPIFANIO Balderas PCP - General Internal Medicine 02/27/17
== END 2025-03-26 10:02 | disposition home or self-care (01) ==
LOC: HO.HCS 09:37
PROVIDERS: PCP Internal Medicine; Visit Provider Nurse Practitioner Family
DX: R00.2 Palpitations (principal); I49.3 Ventricular premature depolarization; R07.2 Precordial pain
CPT/HCPCS: 99213

== ENCOUNTER → 2025-03-26 09:36 | Outpatient (BNVA) | payer OTHER, SELFPAY | PROVIDERS: PCP Internal Medicine; Visit Provider Nurse Practitioner Family | DX: I49.3 Ventricular premature depolarization (principal); R00.2 Palpitations; R07.2 Precordial pain | CPT/HCPCS: 99212 ==

== ENCOUNTER 2025-05-12 07:53 | Outpatient (AMB) | payer OTHER, SELFPAY ==
--- OUTSIDE RECORDS SUMMARY | 2025-05-12 07:56 | XMS_ITS | Clinical Summary ---
Author Organization [facility] Address [address] [place] [address] Phone Care Team Providers Care Database Report Writer Name Role Phone Omayra Flynn MD Primary Care Provider [phone] Allergies No known active allergies Medications bisacodyL (DULCOLAX) 5 mg EC tablet Take 2 tablets by mouth right before your first dose of liquid prep. 10/10/2022 Active cholecalciferol (VITAMIN D-3) 50 mcg (2,000 unit) capsule Take 1 capsule (2,000 Units total) by mouth 1 (one) time each day. 90 each 3 07/06/2024 5 Active Active Problems No known active problems Immunizations Immunization Administration Dates Next Due Moderna SARS-CoV-2 COVID-19, mRNA, LNP-S, preservative free 02/08/2021,01/11/2021 Surgical History Surgery Date Site/Laterality Comments TUBAL LIGATION PROCEDURE: HISTORICAL TUBAL LIGATION BELT ABDOMINOPLASTY PROCEDURE: HISTORICAL TUMMY TUCK OTHER SURGICAL HISTORY 2016 PROCEDURE: [place] HYSTEROSCOPY ENDOMETRIAL ABLATION Medical History Medical History Date Comments Anemia DX:Anemia Heart abnormality DX:Heart abnor mality History of genital injury 01/2019 DX:His tory of genital injury; COMMENT: while jet skiing, seen in [facility], stable at dischage Type 2 [...] Health Maintenance Due Date Last Done Comments Colorectal Cancer Screening: Colonoscopy 1975 DTaP,Tdap,and Td Vaccines (1 - Tdap) 02/13/1996 Hepatitis B Vaccines (1 of 3 - 19+ 3-dose series) 02/13/1996 Social Influencers of Health Screening 07/07/2022 Depression Screening 07/29/2024 Cervical Cancer Screening: HPV 02/07/2025 02/08/2020 COVID-19 Vaccine ( - season) 2025 02/08/2021, 01/11/2021 Influenza Vaccine (#1) 2025 Breast Cancer Screening 02/16/2026 02/17/20 24, 02/15/2024, 2023, Additional history exists RSV Immunization Adult Patients (1 - 1-dose 75+ series) 02/13/2052 HIV Screening Completed 04/09/2022 Hepatitis C Screening [...] AM EDT Narrative 02/17/2024 10:12 AM EDT [facility] Diagnostic Imaging Department [address] [place] [id number] Patient: IVÁN HOROWITZ /Age/Sex: 1975 - 49 - F Unit#: [id number] Location/Status: SPDIMAM/REG CLI Mnemonic/Ordering [facility] Ordering Physician: RACHAEL GONSALVES CNM [facility] Screening Digital - 02/15/24 - 1044 Report Status:Signed EXAM: [facility] Screening Digital EXAM DATE AND TIME: 02/15/2024 10:45 AM HISTORY: Annual screening COMPARISON: 2023 and 01/12/2019 TECHNIQUE: Bilateral digital breast tomosynthesis was performed in the CC and MLO projections. Computer aided detection with Evgen 7.2-H and [employer] 3D 3.1 was employed. TISSUE DENSITY: b. [...] Procedure Note Rena Beebe MD - 05/13/2024 [facility] Diagnostic Imaging Department [address] [place] [address] Patient: IVÁN HOROWITZ /Age/Sex: 1975 - 49 - F Unit#: [id number] Location/Status: SPDIMAM/REG CLI Mnemonic/Ordering Site: [facility] Ordering Physician: RACHAEL GONSALVES CNM [facility] Screening Digital - 02/15/24 - 1044 Report Status:Signed EXAM: [facility] Screening Digital EXAM DATE AND TIME: 02/15/2024 10:45 AM HISTORY: Annual screening COMPARISON: 2023 and 01/12/2019 TECHNIQUE: Bilateral digital breast tomosynthesis was performed in the CCand MLO projections. Computer aided detection with Evgen 7.2-H andiLost AI 3D 3.1 was employed. TISSUE DENSITY: [...] Most Recently Relevant to Health Maintenance Insurance [facility] [place] [address] Care Teams Database Report Writer Relationship Specialty Start Date End Date Omayra Flynn MD [address] [place] [address] , [address] [facility] D/B/A[facility] EPIFANIO Balderas PCP - General Internal Medicine 02/27/17
--- NOTE | 2025-05-12 08:15 | A.OFFPC_ITS ---
Vital Signs 05/12/25 08:16 Height 5 ft 9 in Weight 192 lb 4 oz BMI 28.4 BP 118/72 Blood Pressure Location Lt brachial Position Sitting Pulse 84 Pulse Source Pulse Oximeter Temp 97.1 F Temp Source Temporal Artery Scan Pulse Oximetry (%) 98 Oxygen Delivery Method Room Air Intake Visit Reasons: dm Intake Note: Patient is here to follow up on DM. Service Manager Required: No Tool And Die Supervisor: Not Required per policy Accompanied by: Self / Same As Patient Allergies metformin Adverse Reaction (Intermediate, Uncoded 05/12/25 08:32) abdominal pain, diarrhea Medication List - Last Reconciled 05/12/25 by Omayra Flynn MD atorvastatin 10 mg PO BEDTIME 90 days blood sugar diagnostic (FreeStyle Lite Strips) Use 1 test strip once a day blood-glucose meter (FreeStyle Lite Meter kit) As directed cholecalciferol (vitamin D3) 25 mcg PO DAILY 90 days dulaglutide (Trulicity) 1.5 mg (0.5 mL) subcut QWEEK 4 weeks lancets (FreeStyle Lancets) Use 1 lancet once a day Tobacco use date assessed: 05/12/25 Dental Screening Dental Screen Date: 08/27/24 HPI HPI Comments History of Present Illness Details The patient is a 50-year-old female presenting for follow-up of diabetes mellitus. Her hemoglobin A1c has increased from 6.7% in December to 7.2% currently, indicating a worsening of glycemic control. She is currently on Trulicity 1.5 mg once a week as part of her diabetes management regimen. The patient also has hyperlipidemia, with a previous LDL cholesterol level of 127 mg/dL, which is above the target of less than 70 mg/dL. She is on atorvastatin for lipid management. Her vitamin D level is low at 27.8 ng/mL, and she is taking vitamin D supplements to address this deficiency. The patient is overweight with a BMI of 28.4 and has been diagnosed with non- alcoholic fatty liver disease. She has undergone a CT angiogram of the heart, which was negative for coronary artery disease. She has mild major depression but does not require medication at this time. The patient reports changes in vision, which she attributes to Trulicity, but these symptoms are consistent with presbyopia, a common age-related condition. [facility] Medical History (Updated 05/12/25 @ 08:57 by Omayra Flynn MD) Sprain of left knee Sprain of left ankle Right knee pain Transaminitis Surgical History H/O tubal ligation H/O heart surgery Hx of vaginal surgery H/O tubal ligation Family History Father Diabetes Mother Diabetes Brother No problems noted. Brother No problems noted. Brother No problems noted. Brother No problems noted. Brother No problems noted. Brother No problems noted. Sister No problems noted. Son No problems noted. Daughter No problems noted. Social History Housing: House Alcohol intake: current Alcohol intake frequency: holidays/special occasions only Alcohol type: wine Patient Tobacco Use Status: Never used Tobacco e-Cigarette/Vaping Use: Never Used Second Hand Smoke Exposure: No service: No Current occupational status: employed Current occupation: [employer] Current occupational exposures/hazards: No Cognitive needs: No Hearing needs: No Vision needs: No Questionnaire Thrive Questionnaire Date Thrive assessed: 08/20/24 I am a: Patient What is your living situation today?: I have a steady place to live Within the past 12 months, did the food you bought not last and you didn't have the money to get more?: Sometimes True Within the past 12 months, did you worry whether your food would run out before you got money to buy more?: Sometimes True Do you have trouble paying for medicines?: No Do you have trouble getting transportation to medical appointments?: No Do you have trouble paying your heating and electricity bill?: No Do you have trouble taking care of your child, family member or friend?: No Do you have trouble with day-to-day activities such as bathing, preparing meals, shopping, managing finances, etc.?: No Are you currently unemployed and looking for a job?: No Are you interested in more education?: Yes Currently or been in a relationship where the following occur: No concerns reported THRIVE Score: 2 ADDIE-7 AMB Questionnaire ADDIE-7 Date ADDIE - 7 assessed: 08/27/24 Source: Developed by Marcia Hamlin.W. Mario, Ricardo Malave and colleagues, with an educational maddi from [employer]. Review of Systems Const All systems reviewed & are unremarkable except as noted in HPI and below Card Denies chest pain at rest, Denies chest pain with activity, Denies edema, Denies irregular heart rhythm, Denies claudication, Denies dyspnea, Denies dyspnea on exertion, Denies orthopnea, Denies paroxysmal nocturnal dyspnea and Denies slow heart rate Resp Denies cough, Denies dyspnea and Denies dyspnea on exertion GI Denies abdominal pain, Denies change in bowel habits, Denies excessive flatus, Denies nausea and Denies vomiting Neuro Denies lack of coordination Physical exam (Primary Care) Vital Signs: Last Vital Signs Temp 97.1 F 05/12/25 08:16 Pulse 84 05/12/25 08:16 BP 118/72 05/12/25 08:16 Pulse Ox 98 05/12/25 08:16 Oxygen Delivery Method Room Air 05/12/25 08:16 BMI result Body Mass Index 28.4 Tobacco/Smoking Status: Tobacco use Status Tobacco use date assessed 05/12/25 05/12/25 08:16 Patient Tobacco Use Status Never used Tobacco 05/12/25 08:15 e-Cigarette/Vaping Use Never Used 05/12/25 08:15 Thrive Assessment: Date of Thrive Assessment Date Thrive assessed 08/20/24 05/12/25 08:15 Currently or been in a relationship where the following occur: No concerns reported Resp Effort & Inspection: normal respiratory effort Auscultation: clear to auscultation bilaterally Cardio Jugular venous distension: no JVD Rate: regular rate Rhythm: regular rhythm Heart sounds: S1 normal heart sound present and S2 normal heart sound present Extrem General: Yes full ROM Results AMB Hemoglobin A1c AMB Hemoglobin A1c 7.2 % Last Edit by RILEY Nguyen on 05/12/25 08:30 Results Reviewed Results Reviewed: Laboratory Last Values Hgb A1c (Clinic) 7.2 % (4.0-6.0) H 05/12/25 08:14 Coding Level of Care Code Est Pt Level 4 (65528) Complex EM visit Add On G2211 Diagnoses Type 2 diabetes mellitus without complication, without long-term current use of insulin E11.9 Diabetes mellitus type: type 2 Diabetes mellitus skilled nursing insulin use: without intermediate manager use Diabetes mellitus complication status: without complication Hyperlipidemia LDL goal <70 E78.5 Low vitamin D level R79.89 Overweight (BMI 25.0-29.9) E66.3 Mild recurrent major depression F33.0 [place] (nonalcoholic steatohepatitis) K75.81 Time Spent (min) 21 Assessment & Plan Assessment & Plan (1) Diabetes mellitus: Code(s): E11.9 - Type 2 diabetes mellitus without complications Category: Medical Qualifiers: Diabetes mellitus type: type 2 Diabetes mellitus intermediate manager insulin use: without intermediate manager use Diabetes mellitus complication status: without complication Qualified Code(s): E11.9 - Type 2 diabetes mellitus without complications (2) Hyperlipidemia LDL goal <70: Code(s): E78.5 - Hyperlipidemia, unspecified Category: Medical (3) Low vitamin D level: Code(s): R79.89 - Other specified abnormal findings of blood chemistry Category: Medical (4) Overweight (BMI 25.0-29.9): Code(s): E66.3 - Overweight Category: Medical (5) Mild recurrent major depression: Code(s): F33.0 - Major depressive disorder, recurrent, mild Category: Medical (6) [place] (nonalcoholic steatohepatitis): Code(s): K75.81 - Nonalcoholic steatohepatitis ([place]) Category: Medical Plan Plan 1. Diabetes Mellitus The patient's diabetes mellitus management includes Trulicity 1.5 mg once a week. Her hemoglobin A1c has increased to 7.2%, indicating a need for closer monitoring and potential adjustment of her treatment regimen. 2. Hyperlipidemia The patient is on atorvastatin to manage her hyperlipidemia, with a previous LDL cholesterol level of 127 mg/dL. The goal is to reduce her LDL to less than 70 mg/dL. 3. Vitamin D Deficiency The patient is taking vitamin D supplements to address her deficiency, with a current level of 27.8 ng/mL. 4. Overweight The patient is overweight with a BMI of 28.4, and lifestyle modifications are recommended to address this issue. 5. Non-Alcoholic Fatty Liver Disease The patient has been diagnosed with non-alcoholic fatty liver disease, and dietary changes are advised. 6. Mild Major Depression The patient has mild major depression but does not currently require medication. 7. Presbyopia The patient reports changes in vision consistent with presbyopia and has an upcoming appointment with ophthalmology. Orders: Orders Lipid Panel 4 Months E78.5 - Hyperlipidemia, unspecified Microalbumin, Random (w Creat) 4 Months R80.9 - Proteinuria, unspecified Comprehensive [place]. Panel Fast 4 Months E11.9 - Type 2 diabetes mellitus without complications Thyroid Stimulating Hormone 4 Months E66.3 - Overweight AMB Hemoglobin A1c Today E11.9 - Type 2 diabetes mellitus without complications Vitamin D 25-OH Total 4 Months E55.9 - Vitamin D deficiency, unspecified Medications: New semaglutide (Ozempic) for 4 weeks 0.25 mg (0.368 mL) subcut QWEEK 1.472 mL 0RF 4 weeks E11.9 - Type 2 diabetes mellitus without complications Refilled blood-glucose meter (FreeStyle Lite Meter kit) As directed 1 ea 0RF E11.9 - Type 2 diabetes mellitus without complications
[2025-05-12 08:16] VITALS: BP 118/72; PULSE 84; TEMP 36.2; O2SAT 98; BMI 28.4
== END 2025-05-12 08:46 | disposition home or self-care (01) ==
LOC: HO.HMCH 07:54
PROVIDERS: PCP Internal Medicine; Visit Provider Internal Medicine
DX: E11.9 Type 2 diabetes mellitus without complications (principal); E78.5 Hyperlipidemia, unspecified; R79.89 Other specified abnormal findings of blood chemistry; E66.3 Overweight; F33.0 Major depressive disorder, recurrent, mild; K75.81 Nonalcoholic steatohepatitis (NASH)

== ENCOUNTER → 2025-05-12 07:53 | Outpatient (BNVA) | payer OTHER, SELFPAY | PROVIDERS: PCP Internal Medicine; Visit Provider Internal Medicine | DX: E11.9 Type 2 diabetes mellitus without complications (principal); E78.5 Hyperlipidemia, unspecified; E55.9 Vitamin D deficiency, unspecified; E66.3 Overweight; H53.8 Other visual disturbances; F33.0 Major depressive disorder, recurrent, mild; K75.81 Nonalcoholic steatohepatitis (NASH); H52.4 Presbyopia; Z68.28 Body mass index [BMI] 28.0-28.9, adult | CPT/HCPCS: 83036; 99212 ==

== ENCOUNTER 2025-06-07 09:40 | Outpatient (AMB) | payer OTHER, SELFPAY ==
--- NOTE | 2025-06-07 09:44 | MHC.OFFVIS ---
Vital Signs 06/07/25 09:53 Height 5 ft 9 in Weight 187 lb 6.287 oz BMI 27.7 BP 102/70 Blood Pressure Location Lt brachial Position Sitting Pulse 90 Intake Visit Reasons: 6 month follow up All[facility]ies [facility] Adverse Reaction (Intermediate, Verified 06/07/25 09:53) blurry vision metformin Adverse Reaction (Intermediate, Uncoded 06/07/25 09:53) abdominal pain, diarrhea HPI HPI 6 month follow up: Details: 50 yr old f here for f/u RECAP: She still had mild transaminitis on labs and ultrasound showed fatty liver with mild to moderate liver fibrosis. She was overweight and was advised to do diet and exercise by her PCP LIVER bx: micro and macro vesicular steatosis US 09/2024: hepatic steatosis, INTERIM: she is taking ozempic but thinks may be causing eye issues, --only uses prn she has changed her diet and eating more healthy she tried oral probiotics not helped her sore throat which she got after covid has anxiery and stress issues EXAM: GENERAL: The patient is well developed and nontoxic. VITAL SIGNS:see workflow HEENT: Nonicteric sclerae, PERRLA, EOMI. Oropharynx clear. Moist mucous membranes. Conjunctivae appear well perfused. No thyroid mass. tonsils flat but inflammed, no palp LN CHEST: Chest wall is nontender. HEART: no raised JVP LUNGS: breathing easily, not wheezy ABDOMEN: not distended SKIN: No rash, no excessive bruising, petechiae, or purpura. NEUROLOGIC: Cranial nerves II-XII intact without motor/sensory deficit. 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, on trulicity--now taking ozempic prn and Vit E PLAN: 1/ commence vit E 400 units bid, check labs now 2/ if fibro sure high then may rezdiffra 3/ cont with exercise and weight loss 4/ trial of azithromycin for 1 week, see if helps throat 5/ for anxiety advised on meditation and deep breathing, offered counseling- declined [facility], [facility] Medical History Sprain of left knee Sprain of left ankle Right knee pain Transaminitis Surgical History H/O tubal ligation H/O heart surgery Hx of vaginal surgery H/O tubal ligation Family History Father Diabetes Mother Diabetes Brother No problems noted. Brother No problems noted. Brother No problems noted. Brother No problems noted. Brother No problems noted. Brother No problems noted. Sister No problems noted. Son No problems noted. Daughter No problems noted. 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 Current occupational exposures/hazards: No Cognitive needs: No Hearing needs: No Vision needs: No Physical Exam Vital Signs: Last Vital Signs Pulse 90 06/07/25 09:53 BP 102/70 06/07/25 09:53 BMI result Body Mass Index 27.7 Assessment & Plan Assessment & Plan (1) Fatty liver: Code(s): K76.0 - Fatty (change of) liver, not elsewhere classified Category: Medical Plan: as above (2) Nonalcoholic steatohepatitis ([place]): Code(s): K75.81 - Nonalcoholic steatohepatitis ([place]) Category: Medical Plan: as above Orders: Orders Liver Fibrosis Pnl Today K75.81 - Nonalcoholic steatohepatitis ([place]), K76.0 - Fatty (change of) liver, not elsewhere classified Comprehensive Met. Panel Today K75.81 - Nonalcoholic steatohepatitis ([place]), K76.0 - Fatty (change of) liver, not elsewhere classified Prothrombin Time INR Today K75.81 - Nonalcoholic steatohepatitis ([place]), K76.0 - Fatty (change of) liver, not elsewhere classified Complete Blood Count Auto Diff Today K75.81 - Nonalcoholic steatohepatitis ([place]), K76.0 - Fatty (change of) liver, not elsewhere classified Medications: Discontinued atorvastatin Discontinued Reason: Patient Completed Course 10 mg PO BEDTIME 90 days 90 tabs 1RF Coding Level of Care Code Est Pt Level 4 (50743) Diagnoses Fatty liver K76.0 Nonalcoholic steatohepatitis ([place]) K75.81
[2025-06-07 09:53] VITALS: BP 102/70; PULSE 90; BMI 27.7
--- OUTSIDE RECORDS SUMMARY | 2025-06-07 10:58 | XMS_ITS | Clinical Summary ---
Author Organization [facility] Address [address] [place] [address] Phone Care Team Providers Care Kennel Staff Member Name Role Phone Omayra Flynn MD Primary Care Provider [phone] Allergies No known active allergies Medications bisacodyL [...] TUMMY TUCK OTHER SURGICAL HISTORY 2016 PROCEDURE: [place] HYSTEROSCOPY ENDOMETRIAL ABLATION Medical History Medical History Date Comments Anemia DX:Anemia Heart abnormality DX:Heart abnor mality History of genital injury 01/2019 DX:His tory of genital injury; COMMENT: while jet skiing, seen in [facility], stable at dischage Type 2 diabetes [...] [facility] Diagnostic Imaging Department [address] [place] [id number] Patient: IVÁN HOROWITZ /Age/Sex: 1975 - 49 - F Unit#: [id number] Location/Status: SPDIMAM/REG CLI Mnemonic[facility] Order[facility] Physician: RACHAEL GONSALVES CNM [facility] Screening Digital - 02/15/24 - 1044 Report Status:Signed EXAM: [facility] Screening Digital EXAM DATE AND TIME: 02/15/2024 10:45 AM HISTORY: Annual screening COMPARISON: 2023 and 01/12/2019 TECHNIQUE: Bilateral digital breast tomosynthesis was performed in the CC and MLO projections. Computer aided detection with [employer] 7.2-H and [employer] 3D 3.1 was employed. TISSUE DENSITY: b. [...] [facility] Diagnostic Imaging Department [address] [place] [address] Patient: IVÁN HOROWITZ /Age/Sex: 1975 - 49 - F Unit#: [id number] Location/Status: SPDIMAM/REG CLI Mnemonic/Ordering Site: [facility] Ordering Physician: RACHAEL GONSALVES CNM [facility] Screening Digital - 02/15/24 - 1044 Report Status:Signed EXAM: [facility] Screening Digital EXAM DATE AND TIME: 02/15/2024 10:45 AM HISTORY: Annual screening COMPARISON: 2023 and 01/12/2019 TECHNIQUE: Bilateral digital breast tomosynthesis was performed in the CCand MLO projections. Computer aided detection with Hepa Wash 7.2-H and[employer] AI 3D 3.1 was employed. TISSUE DENSITY: [...] Most Recently Relevant to Health Maintenance Insurance [facility] Care Teams Kennel Staff Member Relationship Specialty Start Date End Date Omayra Flynn MD [address] [place] [address] , [address] [facility] D/B/A: [facility] EPIFANIO Balderas PCP - General Internal Medicine 02/27/17
== END 2025-06-07 10:25 | disposition home or self-care (01) ==
LOC: HO.HGI 09:41
PROVIDERS: PCP Internal Medicine; Visit Provider Internal Medicine Gastroenterology
DX: K76.0 Fatty (change of) liver, not elsewhere classified (principal); K75.81 Nonalcoholic steatohepatitis (NASH)
CPT/HCPCS: 99214

== ENCOUNTER → 2025-06-07 09:40 | Outpatient (BNVA) | payer OTHER, SELFPAY | PROVIDERS: PCP Internal Medicine; Visit Provider Internal Medicine Gastroenterology | DX: K75.81 Nonalcoholic steatohepatitis (NASH) (principal) | CPT/HCPCS: 99212 ==

== ENCOUNTER 2025-06-15 08:06 | Outpatient (REF) | payer OTHER, SELFPAY ==
--- OUTSIDE RECORDS SUMMARY | 2025-06-16 15:35 | XMS_ITS | Clinical Summary ---
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 Diagnostic Imaging Department [address] [place] [id number] Patient: IVÁN HOROWITZ /Age/Sex: 1975 - 49 - F Unit#: [id number] Location/Status: SPDIMAM/REG CLI Mnemonic/[facility] Ordering Physician: RACHAEL GONSALVES CNM [facility] Screening Digital - 02/15/24 - 1044 Report Status:Signed EXAM: [facility] Screening Digital EXAM DATE AND TIME: 02/15/2024 10:45 AM HISTORY: Annual screening COMPARISON: 2023 and 01/12/2019 TECHNIQUE: Bilateral digital breast tomosynthesis was performed in the CC and MLO projections. Computer aided detection with [employer] 7.2-H and [employer] 3D 3.1 was employed. TISSUE DENSITY: b. [...] Procedure Note Rena Beebe MD - 05/13/2024 [facility] Diagnostic Imaging Department [address] [place] [address] Patient: IVÁN HOROWITZ /Age/Sex: 1975 - 49 - F Unit#: [id number] Location/Status: SPDIMAM/REG CLI Mnemonic/Ordering Site: [facility] Ordering Physician: RACHAEL GONSALVES CNM [facility] Screening Digital - 02/15/24 - 1044 Report Status:Signed EXAM: [facility] Screening Digital EXAM DATE AND TIME: 02/15/2024 10:45 AM HISTORY: Annual screening COMPARISON: 2023 and 01/12/2019 TECHNIQUE: Bilateral digital breast tomosynthesis was performed in the CCand MLO projections. Computer aided detection with [employer]o 7.2-H and[employer] AI 3D 3.1 was employed. 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
== END 2025-06-15 08:07 | disposition home or self-care (01) ==
LOC: HO.HOSX 08:06
PROVIDERS: Visit Provider Physician Assistant
DX: Z13.89 Encounter for screening for other disorder (principal)